=== PATIENT | female | born 1965 | race Two or more races ===

== ENCOUNTER 2016-05-23 11:12 | Emergency (ER) | payer OTHER ==
[~2016-05-23] VITALS: Ht 157.5 cm; Wt 88.5 kg
[~2016-05-23 11:12] MED LIST: ACETAMINOPHEN-1 EAC1 ORAL; ATARAX25 MG ORAL; BUSPAR10 MG PO; CIPROFLOXACIN500 M2 ORAL; CITALOPRAM HBR40 M1 ORAL; FLAGYL500 MG ORAL; IBUPROFEN600 MG ORAL; LEVAQUIN500 MG ORAL; PROTONIX40 MG ORAL; ZESTRIL20 MG ORAL; ZOFRAN4 M3 ORAL
[2016-05-23 12:04] VITALS: BP 151/86
--- NOTE | 2016-05-23 12:23 | Emergency Room Report ---
History of Present Illness General Chief Complaint: General Complaint Source: Patient (CHELI KOCH) Present Illness HPI The patient is a 51-year-old female with a stated history of hypertension and pre-diabetes presenting for left-sided facial pain with headache and subjective fevers. Pt also admits to nasal congestion. The pt states she has had a sinus infection in the past and this feels similar. Pain is an 8/10 dull ache to the L face. No radiating pain. The patient also admits to left-sided chest pain and left upper back pain for one month which is worse with movement and touch. Pt unsure of why the pain began and denies any trauma or injury. This pain is described as a 10/10 dull ache and begins in the L upper back. Pt denies cough, SOB, Numbness or tingling of the extremity, Rash. The patient denies any symptoms including shortness of breath, headache, dizziness, blurred vision, diaphoresis, weight loss, nausea, vomiting (CHELI KOCH) Allergies: Coded Allergies: AMOXICILLIN (Verified Allergy, Severe, tongue swelling & rash, 07/13/12) Patient History Past Medical History: see triage record Pertinent Family History: none Last Menstrual Period: 05/06/16 Now: No Reviewed Nursing Documentation: PMH: Agreed, PSxH: Agreed (CHELI KOCH) Nursing Documentation-PMH Past Medical History: No History, Except For Hx Cardiac Problems: No Hx Hypertension: Yes Hx Diabetes: Yes - no meds Hx Cancer: No Hx Gastrointestinal Problems: Yes Hx Neurological Problems: No (CHELI KOCH) Review of Systems All Other Systems: negative except mentioned in HPI (CHELI KOCH) Physical Exam Vital Signs Date Time Temp Pulse Resp B/P Pulse Ox O2 Delivery O2 Flow Rate FiO2 05/23/16 11:32 98.8 76 16 151/86 98 Room Air Sp02 EP Interpretation: reviewed, normal General Appearance: no apparent distress, alert, GCS 15, non-toxic Head: normocephalic, atraumatic Eyes: bilateral eye PERRL, bilateral eye normal inspection ENT: hearing grossly normal, normal pharynx, no angioedema, normal voice, TMs + canals normal, uvula midline, moist mucus membranes, nasal congestion, other - TTP over L maxillary sinus Neck: full range of motion, supple/symm/no masses Respiratory: chest non-tender, lungs clear, normal breath sounds, no accessory muscle use, no wheezing, speaking full sentences Cardiovascular #1: regular rate, rhythm, no edema Gastrointestinal: normal bowel sounds, non tender, soft, non-distended, no guarding, no rebound Rectal: deferred Genitourinary: normal inspection, no CVA tenderness Musculoskeletal: back normal, gait/station normal, normal range of motion, tender - TTP over the L latissimus dorsi Neurologic: alert, oriented x3, responsive, motor strength/tone normal, sensory intact, speech normal Psychiatric: judgement/insight normal, memory normal, mood/affect normal, no suicidal/homicidal ideation Skin: normal color, no rash, warm/dry, well hydrated Lymphatic: no adenopathy (CHELI KOCH P.AKye) Medical Decision Making PA Attestation Dr. Mcgraw is my supervising physician. Patient management was discussed with my supervising physician (CHELI KOCH) Diagnostic Impression: Primary Impression: Sinusitis, acute Additional Impression: Muscle spasm ER Course The patient is a 51-year-old female presenting with subjective fevers, left facial pain, left back pain, and chest pain PE: Vitals show initial HTN but all vitals WNL at time of DC. TTP over the L maxillary sinus only. + nasal congestion. RRR. Lungs CTA bilat. There is TTP over the L latissimus dorsi and L upper chest. Otherwise exam unremarkable. CXR unremarkable. EKG unremarkable. CBC and CMP unremarkable. No leukocytosis. UA unremarkable. Pt given IV fluids, tylenol, and flexeril and is feeling better. The pt is DC'ed and will be Tx'ed with motrin, flexeril, augmentin, and sudafed. Pt to FU with PMD. ER precautions given Laboratory Tests Test 05/23/16 11:45 05/23/16 12:30 Urine Color Pale yellow Urine Appearance Clear Urine pH 7 (4.5-8.0) Urine Specific [place] 1.010 (1.005-1.035) Urine Protein Negative (NEGATIVE) Urine Glucose (UA) Negative (NEGATIVE) Urine Ketones Negative (NEGATIVE) Urine Occult Blood 1+ (NEGATIVE) H Urine Nitrite Negative (NEGATIVE) Urine Bilirubin Negative (NEGATIVE) Urine Urobilinogen Normal MG/DL (0.0-1.0) Urine Leukocyte Esterase 1+ (NEGATIVE) H Urine RBC 2-4 /HPF (0 - 2) H Urine WBC 2-4 /HPF (0 - 2) Urine Squamous Epithelial Cells Few /LPF (NONE/OCC) Urine Bacteria Few /HPF (NONE) White Blood Count 10.0 K/UL (4.8-10.8) Red Blood Count 5.21 M/UL (4.20-5.40) Hemoglobin 15.5 G/DL (12.0-16.0) Hematocrit 47.0 % (37.0-47.0) Mean Corpuscular Volume 90 FL (80-99) Mean Corpuscular Hemoglobin 29.7 PG (27.0-31.0) Mean Corpuscular Hemoglobin Concent 33.0 G/DL (32.0-36.0) Red Cell Distribution Width 13.9 % (11.6-14.8) Platelet Count 299 K/UL (150-450) Mean Platelet Volume 7.4 FL (6.5-10.1) Neutrophils (%) (Auto) 56.1 % (45.0-75.0) Lymphocytes (%) (Auto) 30.5 % (20.0-45.0) Monocytes (%) (Auto) 7.2 % (1.0-10.0) Eosinophils (%) (Auto) 5.0 % (0.0-3.0) H Basophils (%) (Auto) 1.3 % (0.0-2.0) Sodium Level 141 mEQ/L (135-145) Potassium Level 4.7 mEQ/L (3.4-4.9) Chloride Level 102 mEQ/L (98-107) Carbon Dioxide Level 26 mEQ/L (20-30) Anion Gap 13 (5-15) Blood Urea Nitrogen 9 mg/dL (7-23) Creatinine 0.7 mg/dL (0.5-0.9) Estimate Glomerular Filtration Rate > 60 mL/min (>60) Glucose Level 109 mg/dL (74-106) H Calcium Level 10.0 mg/dL (8.6-10.2) Total Bilirubin 0.2 mg/dL (0.0-1.2) Aspartate Amino Transferase (AST) 18 U/L (5-40) Alanine Aminotransferase (ALT) 22 U/L (3-33) Alkaline Phosphatase 61 U/L (35-104) Total Protein 7.3 g/dL (6.6-8.7) Albumin 4.4 g/dL (3.5-5.2) Globulin 2.9 g/dL Albumin/Globulin Ratio 1.5 (1.0-2.7) Lipase 39 U/L (< 60) Lab Results Impression CBC, CMP unremarkable. UA shows now signs of infection (CHELI KOCH P.A.) ER Course Scribe documentation reviewed by me and is accurate. (Keon Mcgraw M.D.) EKG Diagnostic Results EP Interpretation: NSR. No acute changes Rate: normal - 67 Rhythm: NSR ST Segments: no acute changes ASA given to the pt in ED: No PA Scribe Text EKG was reviewed and read with my supervising physician. No acute ST segment changes are seen. Normal rate and rhythm. No acute changes. (CHELI KOCH P.A.) Chest X-Ray Diagnostic Results EP Interpretation: Yes Findings: no consolidation, no effusion, no pneumothorax Number of Views: 1 PA Scribe Text I am acting as scribe for my supervising physician. My supervising physician's interpretation of the chest xrays are there is no consolidation, no effusion, no acute cardiopulmonary disease, no pneumothorax (CHELI KOCH P.A.) Last Vital Signs Date Time Temp Pulse Resp B/P Pulse Ox O2 Delivery O2 Flow Rate FiO2 05/23/16 12:04 98.8 76 16 151/86 98 Room Air Status: improved (CHELI KOCH P.A.) Disposition: HOME, SELF-CARE Condition: Improved Scripts Cyclobenzaprine Hcl* (FLEXERIL*) 10 Mg Tablet 10 MG ORAL THREE TIMES A DAY, #15 TAB Prov: TERZIAN,CHELI P.A. 05/23/16 Ibuprofen* (MOTRIN*) 600 Mg Tablet 600 MG ORAL Q8H Y for For Pain, #30 TAB 0 Refills Prov: TERZIAN,CHELI P.A. 05/23/16 Levofloxacin* (LEVAQUIN*) 750 Mg Tablet 750 MG ORAL DAILY, #5 TAB Prov: TERZIAN,CHELI P.A. 05/23/16 Pseudoephedrine Hcl* (SUDAFED*) 60 Mg Tablet 60 MG PO Q6H, #20 TAB Prov: CHELI KOCH 05/23/16 Referrals: Jimenez NICHOLE,REFERRING (PCP) CHELI KOCH May 23, 2016 12:23 Keon Mcgraw M.D. May 25, 2016 01:28
[2016-05-23] MEDS ORDERED: Cyclobenzaprine 10mg Tab ORAL ONE (12:30)
[2016-05-23 12:40] LABS: APPEARANCE,URINE CLEAR; KETONES,URINE NEGATIVE (NEGATIVE); LEUKOCYTE ESTERASE ,URINE 1+ (NEGATIVE); NITRITE,URINE NEGATIVE (NEGATIVE); PH,URINE 7 (4.5-8.0); PROTEIN,URINE NEGATIVE (NEGATIVE); UROBILINOGEN,URINE NORMAL MG/DL (0.0-1.0)
[2016-05-23 12:41] LABS: BASOPHILS % (AUTO) 1.3 % (0.0-2.0); LYMPHOCYTES % (AUTO) 30.5 % (20.0-45.0); MEAN CORPUSCULAR HEMOGLOBIN 29.7 PG (27.0-31.0); MEAN CORPUSCULAR VOLUME 90 FL (80-99); MEAN PLATELET VOLUME 7.4 FL (6.5-10.1); MONOCYTES % (AUTO) 7.2 % (1.0-10.0); NEUTROPHILS % (AUTO) 56.1 % (45.0-75.0); PLATELET COUNT 299 K/UL (150-450); RED BLOOD COUNT 5.21 M/UL (4.20-5.40); RED CELL DISTRIBUTION WIDTH 13.9 % (11.6-14.8)
[2016-05-23 12:56] LABS: ALANINE AMINOTRANSFERASE 22 U/L (3-33); ALBUMIN/GLOBULIN RATIO 1.5 (1.0-2.7); ANION GAP 13 (5-15); ASPARTATE AMINO TRANSFERASE 18 U/L (5-40); CARBON DIOXIDE 26 mEQ/L (20-30); CHLORIDE 102 mEQ/L (98-107); CREATININE 0.7 mg/dL (0.5-0.9); GLOMERULAR FILTRATION RATE > 60 mL/min (>60); HEMOLYSIS 0; LIPASE 39 U/L (< 60); POTASSIUM 4.7 mEQ/L (3.4-4.9); SODIUM 141 mEQ/L (135-145); TOTAL PROTEIN 7.3 g/dL (6.6-8.7)
[2016-05-23 13:16] LABS: BACTERIA,URINE FEW /HPF; SQUAMOUS EPITHELIAL CELL,UR FEW /LPF (NONE/OCC)
[2016-05-23] MEDS ORDERED: PSEUDOEPHEDRINE60 MG PO (13:40)
[2016-05-23] MEDS ORDERED: LEVAQUIN750 MG ORAL (13:40)
[2016-05-23] MEDS ORDERED: IBUPROFEN600 MG ORAL (13:40)
[2016-05-23] MEDS ORDERED: CYCLOBENZAPRINE10 MG ORAL (13:40)
[2016-05-23 13:53] VITALS: BP 125/82
[2016-05-23 14:01] VITALS: BP 125/82
--- NOTE | 2016-05-23 14:21 | Diagnostic Imaging Report ---
Indication: COUGH Technique: One view of the chest Comparison: 08/13/2015 Findings: Lungs and pleural spaces are clear. Heart size is normal. No significant change Impression: No acute process
--- NOTE | 2016-05-26 16:13 | Cardiology Report ---
APPROVED REPORT EKG Measurement Heart [id number] HI [id number] [id number] Normal sinus rhythm Incomplete right bundle branch block Abnormal ECG
== END 2016-05-23 14:02 | disposition home or self-care (01) ==
LOC: EMR 12:15
DX: J01.90 Acute sinusitis, unspecified (principal); M62.838 Other muscle spasm; I10 Essential (primary) hypertension
CPT/HCPCS: 36415; 71010; 80053; 81003; 83690; 85025; 93005; 96374; 96375; 99284; J2405

== ENCOUNTER 2016-07-10 22:21 | Emergency (ER) | payer OTHER ==
[~2016-07-10] VITALS: Ht 157.5 cm; Wt 88.5 kg
[~2016-07-10 22:21] MED LIST changes: +CYCLOBENZAPRINE10 MG ORAL; +LEVAQUIN750 MG ORAL; +PSEUDOEPHEDRINE60 MG PO
--- NOTE | 2016-07-10 22:47 | Emergency Room Report ---
History of Present Illness General Chief Complaint: Chest Pain Source: Patient Present Illness [facility] This is a 51-year-old female with a history of gastritis anxiety. She presents with chief complaint of chest pain. Described the pain as a burning throbbing pain lasting for a few minutes. No exertional component. No diaphoresis. No shows of breath. His been ongoing for several months. She's been here before for the same thing. Workup revealed that she had gastritis on endoscopy. Negative for a tolerate. Negative for cancer. She also has history of anxiety. Has not anything for this. No other complaint. Allergies: Coded Allergies: AMOXICILLIN (Verified Allergy, Severe, tongue swelling & rash, 07/13/12) Patient History Past Medical History: see triage record, old chart reviewed Past Surgical History: other Pertinent Family History: none Social History: Denies: smoking Now: No Immunizations: other Reviewed Nursing Documentation: PMH: Agreed, PSxH: Agreed Nursing Documentation-PMH Hx Cardiac Problems: No Hx Hypertension: Yes Hx Diabetes: Yes - no meds Hx Cancer: No Hx Gastrointestinal Problems: Yes Hx Neurological Problems: No Review of Systems Eye: Denies: blurred vision, eye pain ENT: Denies: ear pain, nose congestion, throat swelling Respiratory: Denies: cough, shortness of breath Cardiovascular: Reports: chest pain, Denies: palpitations Gastrointestinal: Denies: abdominal pain, diarrhea, nausea, vomiting Musculoskeletal: Denies: back pain, joint pain Skin: Denies: rash Neurological: Denies: headache, numbness Endocrine: Denies: increased thirst, increased urine Hematologic/Lymphatic: Denies: easy bruising All Other Systems: negative except mentioned in HPI Physical Exam Vital Signs Date Time Temp Pulse Resp B/P Pulse Ox O2 Delivery O2 Flow Rate FiO2 07/10/16 22:24 97.9 97 17 148/91 97 Room Air vitals unremarkable Sp02 EP Interpretation: reviewed, normal General Appearance: well appearing, no apparent distress, alert Head: normocephalic, atraumatic Eyes: bilateral eye EOMI, bilateral eye PERRL ENT: hearing grossly normal, normal pharynx Neck: full range of motion, supple, no meningismus Respiratory: chest non-tender, lungs clear, normal breath sounds Cardiovascular #1: regular rate, rhythm, no murmur Gastrointestinal: normal bowel sounds, non tender, no mass, no organomegaly, no bruit, non-distended Musculoskeletal: back normal, gait/station normal, normal range of motion Psychiatric: mood/affect normal Skin: warm/dry Medical Decision Making Diagnostic Impression: Primary Impression: Chest pain Qualified Codes: R07.9 - Chest pain, unspecified Additional Impression: Anxiety ER Course She presents with atypical chest pain. No evidence of ACS, PE, dissection to name a few. Most likely anxiety related versus gastritis. Lab Results Impression labs normal EKG Diagnostic Results Rate: normal Rhythm: NSR ST Segments: no acute changes Rhythm Strip Diag. Results EP Interpretation: yes Rate: 75 Rhythm: NSR, no PVC's, no ectopy Chest X-Ray Diagnostic Results EP Interpretation: Yes Findings: no consolidation, no effusion, no pneumothorax, no acute cardiopulmonary disease Number of Views: 1 Last Vital Signs Date Time Temp Pulse Resp B/P Pulse Ox O2 Delivery O2 Flow Rate FiO2 07/10/16 22:24 97.9 97 17 148/91 97 Room Air Status: unchanged Disposition: HOME, SELF-CARE Condition: Stable Patient Instructions: Nonspecific Chest Pain Additional Instructions: Followup with your DrKye in 2-3 days. Return if symptom worsen. AVERY LACEY M.D. Jul 10, 2016 22:47
[2016-07-10 23:14] LABS: BASOPHILS % (AUTO) 1.4 % (0.0-2.0); EOSINOPHILS % (AUTO) 1.4 % (0.0-3.0); LYMPHOCYTES % (AUTO) 30.3 % (20.0-45.0); MEAN CORPUSCULAR HEMOGLOBIN 28.9 PG (27.0-31.0); MEAN CORPUSCULAR HGB CONC 31.6 G/DL (32.0-36.0); MEAN CORPUSCULAR VOLUME 92 FL (80-99); MEAN PLATELET VOLUME 7.5 FL (6.5-10.1); NEUTROPHILS % (AUTO) 60.9 % (45.0-75.0); PLATELET COUNT 243 K/UL (150-450); RED BLOOD COUNT 4.89 M/UL (4.20-5.40); RED CELL DISTRIBUTION WIDTH 13.4 % (11.6-14.8); WHITE BLOOD COUNT 10.7 K/UL (4.8-10.8)
[2016-07-10 23:26] LABS: ALANINE AMINOTRANSFERASE 22 U/L (3-33); ALBUMIN/GLOBULIN RATIO 1.4 (1.0-2.7); ANION GAP 15 (5-15); ASPARTATE AMINO TRANSFERASE 20 U/L (5-40); CALCIUM 9.6 mg/dL (8.6-10.2); CARBON DIOXIDE 25 mEQ/L (20-30); CHLORIDE 99 mEQ/L (98-107); GLOMERULAR FILTRATION RATE 58.7 mL/min (>60); HEMOLYSIS 5; POTASSIUM 4.2 mEQ/L (3.4-4.9); SODIUM 139 mEQ/L (135-145); TOTAL PROTEIN 7.4 g/dL (6.6-8.7); TROPONIN I < 0.30 ng/mL (<=0.30)
[2016-07-10 23:36] LABS: CKMB 3.7 ng/mL (< 3.8)
[2016-07-11] VITALS: BP 100/56
[2016-07-11 01:05] VITALS: BP 97/44
--- NOTE | 2016-07-11 10:30 | Diagnostic Imaging Report ---
Indication: Chest Pain Comparison: 05/23/16 A single view chest radiograph was obtained. Findings: Cardiomediastinal appearance is within normal limits for age. Pulmonary vascularity is appropriate. The diaphragmatic contour is smooth and costophrenic angles are sharp. No pleural effusions are identified. The bones are unremarkable. Impression: No acute findings
--- NOTE | 2016-07-15 18:24 | Cardiology Report ---
APPROVED REPORT EKG Measurement Heart [id number] Normal sinus rhythm T wave abnormality, consider lateral ischemia Abnormal ECG
== END 2016-07-11 01:11 | disposition home or self-care (01) ==
LOC: EMR 22:42
DX: R07.89 Other chest pain (principal); F41.9 Anxiety disorder, unspecified; E11.9 Type 2 diabetes mellitus without complications; I10 Essential (primary) hypertension
CPT/HCPCS: 36415; 71010; 80053; 82550; 82553; 84484; 85025; 93005; 99284

== ENCOUNTER 2018-01-07 20:31 | Inpatient (IN) | payer OTHER ==
[~2018-01-07] VITALS: Ht 157.5 cm; Wt 84.8 kg
[~2018-01-07 20:31] MED LIST changes: +BUSPIRONE HCL5 M1 ORAL
[2018-01-07] MEDS ORDERED: Sodium Chloride 500ML 500 ML IV ONE (20:48)
[2018-01-07 20:50] VITALS: BP 139/49
--- NOTE | 2018-01-07 21:15 | Emergency Room Report ---
History of Present Illness General Chief Complaint: Vomiting Source: Patient Present Illness HPI Patient is a 52-year-old male female who presented after increased generalized abdominal pain. Patient had gradual onset of symptoms. Patient had prior history of irritable bowel disease and been taking Linzess. Patient not been vomiting.Patient was noted to have evidence of increased abdominal distention. She reports having increased bowel movements. She had not been having any fever Allergies: Coded Allergies: AMOXICILLIN (Verified Allergy, Severe, tongue swelling & rash, 07/13/12) Patient History Past Medical History: see triage record Reviewed Nursing Documentation: PMH: Agreed; PSxH: Agreed Nursing Documentation-PMH Hx Cardiac Problems: No Hx Hypertension: Yes Hx Diabetes: Yes - no meds Hx Cancer: No Hx Gastrointestinal Problems: Yes - DIVERTICULITIS Hx Neurological Problems: No Review of Systems All Other Systems: negative except mentioned in HPI Physical Exam Vital Signs Date Time Temp Pulse Resp B/P (MAP) Pulse Ox O2 Delivery O2 Flow Rate FiO2 01/07/18 20:35 99.1 89 20 139/49 95 Room Air 99.1 General Appearance: normal inspection, alert, GCS 15, Chronically Ill ENT: hearing grossly normal, normal pharynx Neck: normal inspection Respiratory: normal inspection, chest non-tender, lungs clear Cardiovascular #1: normal inspection Gastrointestinal: distended, tenderness - left lower abdomen Musculoskeletal: normal inspection, back normal Neurologic: normal inspection, alert, oriented x3, responsive, senior technical project manager III-XII nml as tested Psychiatric: normal inspection Skin: normal inspection, normal color Medical Decision Making Diagnostic Impression: Primary Impression: Abdominal pain Additional Impression: Diverticulitis ER Course Patient presented for abdominal pain. Differential diagnoses included ischemic bowel, appendicitis, perforated viscus, abdominal aortic aneurysm, inferior myocardial infarction, viral gastroenteritis. Because of complexity of patient' s case laboratory testing and imaging studies were ordered. Laboratory testing was notable for elevated white blood count as well as some anemia.CT abdomen pelvis showed evidence of a left renal stone as well as evidence of diverticulitis. The patient was given IV Flagyl.Dr. Hayden Gould was contacted for inpatient management due to covering physician. Labs Test 01/07/18 20:47 White Blood Count 20.7 K/UL (4.8-10.8) Red Blood Count 4.92 M/UL (4.20-5.40) Hemoglobin 15.7 G/DL (12.0-16.0) Hematocrit 44.4 % (37.0-47.0) Mean Corpuscular Volume 90 FL (80-99) Mean Corpuscular Hemoglobin 31.9 PG (27.0-31.0) Mean Corpuscular Hemoglobin Concent 35.3 G/DL (32.0-36.0) Red Cell Distribution Width 11.6 % (11.6-14.8) Platelet Count 266 K/UL (150-450) Mean Platelet Volume 7.7 FL (6.5-10.1) Neutrophils (%) (Auto) % (45.0-75.0) Lymphocytes (%) (Auto) % (20.0-45.0) Monocytes (%) (Auto) % (1.0-10.0) Eosinophils (%) (Auto) % (0.0-3.0) Basophils (%) (Auto) % (0.0-2.0) Differential Total Cells Counted 100 Neutrophils % (Manual) 70 % (45-75) Lymphocytes % (Manual) 20 % (20-45) Monocytes % (Manual) 8 % (1-10) Eosinophils % (Manual) 2 % (0-3) Basophils % (Manual) 0 % (0-2) Band Neutrophils 0 % (0-8) Platelet Estimate Adequate Platelet Morphology Normal Red Blood Cell Morphology Normal Prothrombin Time 10.5 SEC (9.30-11.50) Prothromb Time International Ratio 1.0 (0.9-1.1) Activated Partial Thromboplast Time 26 SEC (23-33) Sodium Level 140 MMOL/L (136-145) Potassium Level 4.0 MMOL/L (3.5-5.1) Chloride Level 106 MMOL/L (98-107) Carbon Dioxide Level 25 MMOL/L (21-32) Anion Gap 9 mmol/L (5-15) Blood Urea Nitrogen 16 mg/dL (7-18) Creatinine 1.5 MG/DL (0.55-1.30) Estimat Glomerular Filtration Rate 36.6 mL/min (>60) Glucose Level 170 MG/DL (74-106) Calcium Level 9.5 MG/DL (8.5-10.1) Total Bilirubin 0.3 MG/DL (0.2-1.0) Aspartate Amino Transf (AST/SGOT) 19 U/L (15-37) Alanine Aminotransferase (ALT/SGPT) 24 U/L (12-78) Alkaline Phosphatase 72 U/L (46-116) Total Protein 7.6 G/DL (6.4-8.2) Albumin 3.5 G/DL (3.4-5.0) Globulin 4.1 g/dL Albumin/Globulin Ratio 0.9 (1.0-2.7) Lipase 181 U/L (73-393) EKG Diagnostic Results Rate: normal Rhythm: NSR ST Segments: no acute changes Last Vital Signs Date Time Temp Pulse Resp B/P (MAP) Pulse Ox O2 Delivery O2 Flow Rate FiO2 01/07/18 20:35 99.1 89 20 139/49 95 Room Air 99.1 Status: unchanged Disposition: ADMITTED INPATIENT Condition: Serious Referrals: Jimenez NICHOLE,REFERRING (PCP) Jono Lechuga MD Jan 07, 2018 21:15
[2018-01-07 21:23] LABS: HEMATOCRIT 44.4 % (37.0-47.0); HEMOGLOBIN 15.7 G/DL (12.0-16.0); MEAN CORPUSCULAR VOLUME 90 FL (80-99); PLATELET COUNT 266 K/UL (150-450); RED BLOOD COUNT 4.92 M/UL (4.20-5.40); RED CELL DISTRIBUTION WIDTH 11.6 % (11.6-14.8); WHITE BLOOD COUNT 20.7 K/UL (4.8-10.8)
[2018-01-07] MEDS ORDERED: Isovue-300 100ml vial INJ PRN (21:30)
[2018-01-07] MEDS ORDERED: Simethicone 80mg tab ORAL ONE (21:30)
[2018-01-07 21:38] LABS: ALANINE AMINOTRANSFERASE 24 U/L (12-78); ALBUMIN 3.5 G/DL (3.4-5.0); ALBUMIN/GLOBULIN RATIO 0.9 (1.0-2.7); ALKALINE PHOSPHATASE 72 U/L (46-116); ANION GAP 9 mmol/L (5-15); ASPARTATE AMINO TRANSFERASE 19 U/L (15-37); BILIRUBIN,TOTAL 0.3 MG/DL (0.2-1.0); BLOOD UREA NITROGEN 16 mg/dL (7-18); CALCIUM 9.5 MG/DL (8.5-10.1); CARBON DIOXIDE 25 MMOL/L (21-32); CHLORIDE 106 MMOL/L (98-107); CREATININE 1.5 MG/DL (0.55-1.30); SODIUM 140 MMOL/L (136-145)
[2018-01-07] MEDS ORDERED: Morphine Sulfate 4mg/ml Inj (IV USE ONLY) IVP ONE (22:00)
[2018-01-07] MEDS ORDERED: Mylanta II UD 30ml ORAL PRN (22:30)
[2018-01-07] MEDS ORDERED: Miralax 17gm pkt ORAL PRN (22:30)
[2018-01-07] MEDS ORDERED: Nitroglycerin Subl 0.4mg tab SL PRN (22:30)
[2018-01-07 22:43] LABS: APPEARANCE,URINE SLIGHTLY CLOUDY; BILIRUBIN, URINE NEGATIVE (NEGATIVE); COLOR,URINE PALE YELLOW; GLUCOSE, URINE (UA) NEGATIVE (NEGATIVE); KETONES,URINE NEGATIVE (NEGATIVE); LEUKOCYTE ESTERASE ,URINE 1+ (NEGATIVE); NITRITE,URINE NEGATIVE (NEGATIVE); PH,URINE 6 (4.5-8.0); PROTEIN,URINE 4+ (NEGATIVE); UROBILINOGEN,URINE NORMAL MG/DL (0.0-1.0)
[2018-01-07] MEDS ORDERED: PANTOPRAZOLE SO40 MG ORAL (22:54)
[2018-01-07] MEDS ORDERED: LISINOPRIL20 MG ORAL (22:54)
[2018-01-07] MEDS ORDERED: METFORMIN HCL500 M1 ORAL (22:54)
[2018-01-07] MEDS ORDERED: CELEXA20 MG ORAL (22:54)
[2018-01-07] MEDS ORDERED: BUSPIRONE HCL15 MG ORAL (22:54)
[2018-01-07] MEDS ORDERED: HYDROXYZINE HCL10 M1 PO (22:54)
[2018-01-07 23:00] VITALS: BP 137/78
[2018-01-07] MEDS: D5 1/2NS 1,000 ML IV SCH (23:16)
[2018-01-07 23:30] VITALS: BP 136/86
[2018-01-08 04:00] VITALS: BP 130/69
[2018-01-08] MEDS: Morphine Sulfate 2mg/ml Inj IVP PRN ×3 (04:40→21:17)
[2018-01-08 06:12] LABS: EOSINOPHILS % (AUTO) 0.4 % (0.0-3.0); HEMATOCRIT 43.2 % (37.0-47.0); HEMOGLOBIN 14.8 G/DL (12.0-16.0); LYMPHOCYTES % (AUTO) 18.5 % (20.0-45.0); MEAN CORPUSCULAR VOLUME 91 FL (80-99); MONOCYTES % (AUTO) 8.2 % (1.0-10.0); NEUTROPHILS % (AUTO) 71.9 % (45.0-75.0); PLATELET COUNT 255 K/UL (150-450); RED BLOOD COUNT 4.74 M/UL (4.20-5.40); RED CELL DISTRIBUTION WIDTH 11.5 % (11.6-14.8); WHITE BLOOD COUNT 15.3 K/UL (4.8-10.8)
[2018-01-08 06:49] LABS: ALANINE AMINOTRANSFERASE 27 U/L (12-78); ALBUMIN 3.2 G/DL (3.4-5.0); ALBUMIN/GLOBULIN RATIO 0.8 (1.0-2.7); ALKALINE PHOSPHATASE 63 U/L (46-116); AMYLASE 24 U/L (25-115); ANION GAP 7 mmol/L (5-15); ASPARTATE AMINO TRANSFERASE 22 U/L (15-37); BILIRUBIN,TOTAL 0.5 MG/DL (0.2-1.0); BLOOD UREA NITROGEN 16 mg/dL (7-18); CALCIUM 9.1 MG/DL (8.5-10.1); CARBON DIOXIDE 28 MMOL/L (21-32); CHLORIDE 106 MMOL/L (98-107); CREATININE 1.6 MG/DL (0.55-1.30); POTASSIUM 4.1 MMOL/L (3.5-5.1); SODIUM 141 MMOL/L (136-145)
[2018-01-08 08:00] VITALS: BP 106/64
--- NOTE | 2018-01-08 08:30 | Diagnostic Imaging Report ---
Clinical Indication: Abdominal pain Technique: No oral contrast utilized, per emergency room physician request IV administration nonionic contrast. Venous phase spiral acquisition obtained through the abdomen and pelvis. Multiplanar reconstructions were generated. Total dose length product 984.1 mGycm. CTDIvol(s) 18.6 mGy. Dose reduction achieved using automated exposure control Comparison: 07/06/2015 Findings: There is colonic diverticulosis. The region of the proximal sigmoid colon, there is infiltration of the pericolonic fat, as well as probably a small amount of fluid tracking along the fascial planes. No extraluminal gas or discrete fluid collection demonstrated. Indication is similar to previously reported abnormalities, amount of pericolonic inflammation greater than before The appendix is normal. No small bowel distention. No free or loculated intraperitoneal gas or fluid. There is a tiny fat-containing umbilical hernia again demonstrated. The distal esophagus, stomach, duodenum are unremarkable. The liver is mildly hypoattenuating. The gallbladder, bile ducts, pancreas, spleen, adrenals are unremarkable. The uterus again demonstrates multiple areas of low attenuation. Previously demonstrated cervical low-attenuation areas are less well-seen on the current exam. No pelvic mass or adenopathy otherwise. In the left renal pelvis, there is a 13 x 8 mm diameter calculus, previously within the left lower pole calyx. There is very mild hydronephrosis. There is mild infiltration of the perinephric fat bilaterally as well as of the renal sinus fat on the left. No hydronephrosis. No ureteral calculi. Previously demonstrated low-attenuation renal lesions are not evident currently, presumably due to a different phase of enhancement The included lung bases are clear. The bones demonstrate minimal degenerative proliferative changes. Impression: Findings compatible with acute sigmoid diverticulitis Interim migration of 13.8 mm calculus in left renal pelvis. Apparent mild hydronephrosis. Mild infiltration of the perinephric and peripelvic fat-uncertain as to whether this represents obstruction or inflammation, as there is also some infiltration of the perinephric fat on the right Mild infiltration of the perinephric fat bilaterally in the renal sinus fat on the left. Nonspecific, does raise possibility of acute pyelonephritis. Correlate with clinical and laboratory findings Mild hepatic low attenuation could indicate early steatosis Other findings as noted, including mild degenerative spondylosis changes, fibroid uterus, tiny fat-containing umbilical hernia. Note that previously demonstrated renal and cervical low-attenuation lesions are less well demonstrated currently, probably related to the phase of contrast enhancement This agrees with the preliminary interpretation provided overnight by [facility] teleradiology service. The CT scanner at [facility] is accredited by the [employer] and the scans are performed using protocols designed to limit radiation exposure to as low as reasonably achievable to attain images of sufficient resolution adequate for diagnostic evaluation.
[2018-01-08] MEDS: Lisinopril 20mg tab ORAL SCH (09:00)
[2018-01-08] MEDS: Pantoprazole Inj IVP SCH (09:12)
[2018-01-08] MEDS: Heparin 5000 units/ml inj SUBQ SCH ×2 (09:13→20:32)
[2018-01-08] MEDS: D5 1/2NS 1,000 ML IV SCH (11:26)
[2018-01-08 12:00] VITALS: BP 99/49
--- NOTE | 2018-01-08 12:08 | Consultation ---
History of Present Illness General Date patient seen: Jan 08, 2018 Chief Complaint: Vomiting Reason for Consultation: Diverticulitis Present Illness HPI Ms Logan is a 52 yo female who presented to the ED on 01/07/18 with abdominal pain. The pain was generalized and progressive over the last week. She has had some vomiting and diarrhea. She reports no SOB, CP, Fevers or chills. In the ED she had leukocytosis to [address] scan showed sigmoid diverticulitis. Today she reports that the abdominal pain is better but still present even with pain meds. ID consulted for acute diverticulitis PMHx/PSHx Hypertension DM IBS SocHx Active Smoker No E/D FamHx DM - Mom. Allergies: Coded Allergies: AMOXICILLIN (Verified Allergy, Severe, tongue swelling & rash, 07/13/12) Medication History Scheduled Buspirone Hcl* (Buspirone Hcl*), Unknown Dose ORAL TWICE A DAY, (Reported) Buspirone Hcl* (Buspirone Hcl*), 15 MG ORAL TWICE A DAY, (Reported) Citalopram Hydrobromide* (Citalopram Hbr*), 40 MG ORAL DAILY, (Reported) Citalopram Hydrobromide* (Celexa*), 20 MG ORAL DAILY, (Reported) Lisinopril (Lisinopril*), 25 MG ORAL DAILY, (Reported) Lisinopril* (Zestril*), 20 MG ORAL DAILY, (Reported) Metformin Hcl* (Metformin Hcl*), 500 MG ORAL DAILY, (Reported) Pantoprazole* (Pantoprazole*), 40 MG ORAL EVERY 12 HOURS, (Reported) Miscellaneous Medications Hydroxyzine Hcl (Hydroxyzine Hcl), 10 MG PO, (Reported) Patient History Healthcare decision maker Resuscitation status Advanced Directive on File Review of Systems All Other Systems: negative except mentioned in HPI Physical Exam Last 24 Hour Vital Signs Date Time Temp Pulse Resp B/P (MAP) Pulse Ox O2 Delivery O2 Flow Rate FiO2 01/08/18 09:00 106/64 01/08/18 08:15 Room Air 01/08/18 08:00 98.3 69 20 106/64 (78) 99 98.3 01/08/18 08:00 98.3 69 20 106/64 (78) 99 98.3 01/08/18 04:00 97.8 71 18 130/69 (89) 96 97.8 01/07/18 23:30 98.2 73 18 136/86 (103) 95 98.2 01/07/18 23:30 Room Air 01/07/18 23:00 77 12 137/78 99 Room Air 01/07/18 23:00 77 12 137/78 99 Room Air 01/07/18 22:13 99.1 01/07/18 20:50 99.1 20 139/49 95 Room Air 99.1 01/07/18 20:35 99.1 89 20 139/49 95 Room Air 99.1 Intake and Output 01/07/18 01/08/18 19:00 07:00 Intake Total 1500 ml Balance 1500 ml Intake IV Total 1500 ml # Voids 5 Laboratory Tests Test 01/07/18 20:47 01/07/18 22:00 01/08/18 05:10 White Blood Count 20.7 K/UL (4.8-10.8) H 15.3 K/UL (4.8-10.8) H Red Blood Count 4.92 M/UL (4.20-5.40) 4.74 M/UL (4.20-5.40) Hemoglobin 15.7 G/DL (12.0-16.0) 14.8 G/DL (12.0-16.0) Hematocrit 44.4 % (37.0-47.0) 43.2 % (37.0-47.0) Mean Corpuscular Volume 90 FL (80-99) 91 FL (80-99) Mean Corpuscular Hemoglobin 31.9 PG (27.0-31.0) H 31.2 PG (27.0-31.0) H Mean Corpuscular Hemoglobin Concent 35.3 G/DL (32.0-36.0) 34.2 G/DL (32.0-36.0) Red Cell Distribution Width 11.6 % (11.6-14.8) 11.5 % (11.6-14.8) L Platelet Count 266 K/UL (150-450) 255 K/UL (150-450) Mean Platelet Volume 7.7 FL (6.5-10.1) 7.7 FL (6.5-10.1) Neutrophils (%) (Auto) % (45.0-75.0) 71.9 % (45.0-75.0) Lymphocytes (%) (Auto) % (20.0-45.0) 18.5 % (20.0-45.0) L Monocytes (%) (Auto) % (1.0-10.0) 8.2 % (1.0-10.0) Eosinophils (%) (Auto) % (0.0-3.0) 0.4 % (0.0-3.0) Basophils (%) (Auto) % (0.0-2.0) 1.0 % (0.0-2.0) Differential Total Cells Counted 100 Neutrophils % (Manual) 70 % (45-75) Lymphocytes % (Manual) 20 % (20-45) Monocytes % (Manual) 8 % (1-10) Eosinophils % (Manual) 2 % (0-3) Basophils % (Manual) 0 % (0-2) Band Neutrophils 0 % (0-8) Platelet Estimate Adequate Platelet Morphology Normal Red Blood Cell Morphology Normal Prothrombin Time 10.5 SEC (9.30-11.50) Prothromb Time International Ratio 1.0 (0.9-1.1) Activated Partial Thromboplast Time 26 SEC (23-33) 26 SEC (23-33) Sodium Level 140 MMOL/L (136-145) 141 MMOL/L (136-145) Potassium Level 4.0 MMOL/L (3.5-5.1) 4.1 MMOL/L (3.5-5.1) Chloride Level 106 MMOL/L (98-107) 106 MMOL/L (98-107) Carbon Dioxide Level 25 MMOL/L (21-32) 28 MMOL/L (21-32) Anion Gap 9 mmol/L (5-15) 7 mmol/L (5-15) Blood Urea Nitrogen 16 mg/dL (7-18) 16 mg/dL (7-18) Creatinine 1.5 MG/DL (0.55-1.30) H 1.6 MG/DL (0.55-1.30) H Estimat Glomerular Filtration Rate 36.6 mL/min (>60) 34.0 mL/min (>60) Glucose Level 170 MG/DL (74-106) H 130 MG/DL (74-106) H Calcium Level 9.5 MG/DL (8.5-10.1) 9.1 MG/DL (8.5-10.1) Total Bilirubin 0.3 MG/DL (0.2-1.0) 0.5 MG/DL (0.2-1.0) Aspartate Amino Transf (AST/SGOT) 19 U/L (15-37) 22 U/L (15-37) Alanine Aminotransferase (ALT/SGPT) 24 U/L (12-78) 27 U/L (12-78) Alkaline Phosphatase 72 U/L (46-116) 63 U/L (46-116) Total Protein 7.6 G/DL (6.4-8.2) 7.2 G/DL (6.4-8.2) Albumin 3.5 G/DL (3.4-5.0) 3.2 G/DL (3.4-5.0) L Globulin 4.1 g/dL 4.0 g/dL Albumin/Globulin Ratio 0.9 (1.0-2.7) L 0.8 (1.0-2.7) L Lipase 181 U/L (73-393) Urine Color Pale yellow Urine Appearance Slightly cloudy Urine pH 6 (4.5-8.0) Urine Specific [place] 1.010 (1.005-1.035) Urine Protein 4+ (NEGATIVE) H Urine Glucose (UA) Negative (NEGATIVE) Urine Ketones Negative (NEGATIVE) Urine Blood 3+ (NEGATIVE) H Urine Nitrite Negative (NEGATIVE) Urine Bilirubin Negative (NEGATIVE) Urine Urobilinogen Normal MG/DL (0.0-1.0) Urine Leukocyte Esterase 1+ (NEGATIVE) H Urine RBC 20-30 /HPF (0 - 2) H Urine WBC 10-15 /HPF (0 - 2) H Urine Squamous Epithelial Cells Many /LPF (NONE/OCC) H Urine Bacteria Many /HPF (NONE) H Amylase Level 24 U/L (25-115) L Height (Feet): 5 Height (Inches): 2.00 Weight (Pounds): 187 Medications Current Medications Medications (Trade) Dose Ordered Sig/Dexter Route PRN Reason Start Time Stop Time Status Last Admin Dose Admin Acetaminophen (Tylenol) 650 mg Q4H PRN ORAL fever 01/07/18 22:30 02/06/18 22:29 Al Hydroxide/Mg Hydroxide (Mylanta II) 30 ml Q6H PRN ORAL dyspepsia 01/07/18 22:30 02/06/18 22:29 Dextrose (Dextrose 50%) STAT PRN IV Hypoglycemia 01/07/18 22:30 02/06/18 22:29 Dextrose/Sodium Chloride 1,000 ml @ 75 mls/hr [id number] IV 01/07/18 22:19 02/06/18 22:18 01/08/18 11:26 Diphenhydramine HCl (Benadryl) 25 mg Q6H PRN ORAL Itching/Pruritis 01/07/18 22:30 02/06/18 22:29 Heparin Sodium (Porcine) (Heparin 5000 units/ml) 5,000 units EVERY 12 HOURS SUBQ 01/08/18 09:00 02/07/18 08:59 01/08/18 09:13 Iopamidol (Isovue-300 100ml) 100 ml NOW PRN INJ Radiology Procedure 01/07/18 21:30 Lisinopril (Prinivil) 20 mg DAILY ORAL 01/08/18 09:00 02/07/18 08:59 Morphine Sulfate (Morphine Sulfate) 2 mg EVERY 4 HOURS PRN IVP severe Pain (Pain Scale 7-10) 01/07/18 22:30 01/14/18 22:29 01/08/18 04:40 Nitroglycerin (Ntg) 0.4 mg Q5M X 3 DOSES PRN SL Prn Chest Pain 01/07/18 22:30 02/06/18 22:29 Ondansetron HCl (Zofran) 4 mg Q6H PRN IVP Nausea & Vomiting 01/07/18 22:30 02/06/18 22:29 01/08/18 04:40 Pantoprazole (Protonix) 40 mg DAILY IVP 01/08/18 09:00 02/07/18 08:59 01/08/18 09:12 Polyethylene Glycol (Miralax) 17 gm HSPRN PRN ORAL Constipation 01/07/18 22:30 02/06/18 22:29 Temazepam (Restoril) 15 mg HSPRN PRN ORAL Insomnia 01/07/18 22:30 01/14/18 22:29 Objective Narrative Gen: NAD, well appearing, alert HEENT: NCAT, MMM, EOMI, PERRL, No Oral lesion, no scleral icterus NECK: full range of motion, supple, no meningismus, No LAD, No JVD LUNGS: CTAB, No W/C, No Accessory muscle use CARDS: RRR, S1, S2, No M/R/G ABD: Soft, TTP R and L LQ, ND, No R/G, + BS, No HSM, No Masses : Deferred Ext: C/C/E, Pulses 2+ B/L (DP, Rad) NEURO: A/O x 4, Strength and Sensation Grossly intact PSYCH: mood/affect normal SKIN: warm/dry, No rashes, Assessment/Plan Assessment/Plan 52 yo female who presented to the ED on 01/07/18 with abdominal pain. Acute Diverticulitis 01/07/18 CT Abd/Pel - Acute sigmoid diverticulitis Leukocytosis - Improving Allergy to Amoxicillin Tongue swelling Hypertension DM IBS Plan Start Levofloxacin #1/14 Continue flagyl #2/14 Monitor CBC and Temps Supportive care Thank you for this consult. We will continue to follow the patient during this hospitalization. Keon Ferrer MD Jan 08, 2018 12:08
--- NOTE | 2018-01-08 13:53 | Consultation ---
History of Present Illness General Date patient seen: Jan 08, 2018 Chief Complaint: Vomiting Reason for Consultation: Diverticulitis Present Illness HPI 52-year-old male female who presented to ER with increased generalized abdominal pain. Patient had gradual onset of symptoms. She had leukocytosis and CT abdomen showed acute diverticulitis. Allergies: Coded Allergies: AMOXICILLIN (Verified Allergy, Severe, tongue swelling & rash, 07/13/12) Medication History Scheduled Buspirone Hcl* (Buspirone Hcl*), Unknown Dose ORAL TWICE A DAY, (Reported) Buspirone Hcl* (Buspirone Hcl*), 15 MG ORAL TWICE A DAY, (Reported) Citalopram Hydrobromide* (Citalopram Hbr*), 40 MG ORAL DAILY, (Reported) Citalopram Hydrobromide* (Celexa*), 20 MG ORAL DAILY, (Reported) Lisinopril (Lisinopril*), 25 MG ORAL DAILY, (Reported) Lisinopril* (Zestril*), 20 MG ORAL DAILY, (Reported) Metformin Hcl* (Metformin Hcl*), 500 MG ORAL DAILY, (Reported) Pantoprazole* (Pantoprazole*), 40 MG ORAL EVERY 12 HOURS, (Reported) Miscellaneous Medications Hydroxyzine Hcl (Hydroxyzine Hcl), 10 MG PO, (Reported) Patient History Healthcare decision maker Resuscitation status Advanced Directive on File Past Medical/Surgical History Past Medical/Surgical History: (1) Depression Review of Systems Constitutional: Reports: no symptoms Physical Exam General Appearance: WD/WN, no apparent distress Lines, tubes and drains: peripheral HEENT: normocephalic, atraumatic Neck: non-tender, normal alignment Respiratory/Chest: chest wall non-tender, lungs clear Breasts: no masses Cardiovascular/Chest: normal rate Abdomen: normal bowel sounds Genitourinary/Rectal: normal genital exam Last 24 Hour Vital Signs Date Time Temp Pulse Resp B/P (MAP) Pulse Ox O2 Delivery O2 Flow Rate FiO2 01/08/18 12:00 98.1 65 20 99/49 (66) 97 98.1 01/08/18 09:00 106/64 01/08/18 08:15 Room Air 01/08/18 08:00 98.3 69 20 106/64 (78) 99 98.3 01/08/18 08:00 98.3 69 20 106/64 (78) 99 98.3 01/08/18 04:00 97.8 71 18 130/69 (89) 96 97.8 01/07/18 23:30 98.2 73 18 136/86 (103) 95 98.2 01/07/18 23:30 Room Air 01/07/18 23:00 77 12 137/78 99 Room Air 01/07/18 23:00 77 12 137/78 99 Room Air 01/07/18 22:13 99.1 01/07/18 20:50 99.1 20 139/49 95 Room Air 99.1 01/07/18 20:35 99.1 89 20 139/49 95 Room Air 99.1 Intake and Output 01/07/18 01/08/18 19:00 07:00 Intake Total 1575 ml Balance 1575 ml Intake IV Total 1575 ml # Voids 5 Laboratory Tests Test 01/07/18 20:47 01/07/18 22:00 01/08/18 05:10 White Blood Count 20.7 K/UL (4.8-10.8) H 15.3 K/UL (4.8-10.8) H Red Blood Count 4.92 M/UL (4.20-5.40) 4.74 M/UL (4.20-5.40) Hemoglobin 15.7 G/DL (12.0-16.0) 14.8 G/DL (12.0-16.0) Hematocrit 44.4 % (37.0-47.0) 43.2 % (37.0-47.0) Mean Corpuscular Volume 90 FL (80-99) 91 FL (80-99) Mean Corpuscular Hemoglobin 31.9 PG (27.0-31.0) H 31.2 PG (27.0-31.0) H Mean Corpuscular Hemoglobin Concent 35.3 G/DL (32.0-36.0) 34.2 G/DL (32.0-36.0) Red Cell Distribution Width 11.6 % (11.6-14.8) 11.5 % (11.6-14.8) L Platelet Count 266 K/UL (150-450) 255 K/UL (150-450) Mean Platelet Volume 7.7 FL (6.5-10.1) 7.7 FL (6.5-10.1) Neutrophils (%) (Auto) % (45.0-75.0) 71.9 % (45.0-75.0) Lymphocytes (%) (Auto) % (20.0-45.0) 18.5 % (20.0-45.0) L Monocytes (%) (Auto) % (1.0-10.0) 8.2 % (1.0-10.0) Eosinophils (%) (Auto) % (0.0-3.0) 0.4 % (0.0-3.0) Basophils (%) (Auto) % (0.0-2.0) 1.0 % (0.0-2.0) Differential Total Cells Counted 100 Neutrophils % (Manual) 70 % (45-75) Lymphocytes % (Manual) 20 % (20-45) Monocytes % (Manual) 8 % (1-10) Eosinophils % (Manual) 2 % (0-3) Basophils % (Manual) 0 % (0-2) Band Neutrophils 0 % (0-8) Platelet Estimate Adequate Platelet Morphology Normal Red Blood Cell Morphology Normal Prothrombin Time 10.5 SEC (9.30-11.50) Prothromb Time International Ratio 1.0 (0.9-1.1) Activated Partial Thromboplast Time 26 SEC (23-33) 26 SEC (23-33) Sodium Level 140 MMOL/L (136-145) 141 MMOL/L (136-145) Potassium Level 4.0 MMOL/L (3.5-5.1) 4.1 MMOL/L (3.5-5.1) Chloride Level 106 MMOL/L (98-107) 106 MMOL/L (98-107) Carbon Dioxide Level 25 MMOL/L (21-32) 28 MMOL/L (21-32) Anion Gap 9 mmol/L (5-15) 7 mmol/L (5-15) Blood Urea Nitrogen 16 mg/dL (7-18) 16 mg/dL (7-18) Creatinine 1.5 MG/DL (0.55-1.30) H 1.6 MG/DL (0.55-1.30) H Estimat Glomerular Filtration Rate 36.6 mL/min (>60) 34.0 mL/min (>60) Glucose Level 170 MG/DL (74-106) H 130 MG/DL (74-106) H Calcium Level 9.5 MG/DL (8.5-10.1) 9.1 MG/DL (8.5-10.1) Total Bilirubin 0.3 MG/DL (0.2-1.0) 0.5 MG/DL (0.2-1.0) Aspartate Amino Transf (AST/SGOT) 19 U/L (15-37) 22 U/L (15-37) Alanine Aminotransferase (ALT/SGPT) 24 U/L (12-78) 27 U/L (12-78) Alkaline Phosphatase 72 U/L (46-116) 63 U/L (46-116) Total Protein 7.6 G/DL (6.4-8.2) 7.2 G/DL (6.4-8.2) Albumin 3.5 G/DL (3.4-5.0) 3.2 G/DL (3.4-5.0) L Globulin 4.1 g/dL 4.0 g/dL Albumin/Globulin Ratio 0.9 (1.0-2.7) L 0.8 (1.0-2.7) L Lipase 181 U/L (73-393) Urine Color Pale yellow Urine Appearance Slightly cloudy Urine pH 6 (4.5-8.0) Urine Specific [place] 1.010 (1.005-1.035) Urine Protein 4+ (NEGATIVE) H Urine Glucose (UA) Negative (NEGATIVE) Urine Ketones Negative (NEGATIVE) Urine Blood 3+ (NEGATIVE) H Urine Nitrite Negative (NEGATIVE) Urine Bilirubin Negative (NEGATIVE) Urine Urobilinogen Normal MG/DL (0.0-1.0) Urine Leukocyte Esterase 1+ (NEGATIVE) H Urine RBC 20-30 /HPF (0 - 2) H Urine WBC 10-15 /HPF (0 - 2) H Urine Squamous Epithelial Cells Many /LPF (NONE/OCC) H Urine Bacteria Many /HPF (NONE) H Amylase Level 24 U/L (25-115) L Height (Feet): 5 Height (Inches): 2.00 Weight (Pounds): 187 Medications Current Medications Medications (Trade) Dose Ordered Sig/Dexter Route PRN Reason Start Time Stop Time Status Last Admin Dose Admin Acetaminophen (Tylenol) 650 mg Q4H PRN ORAL fever 01/07/18 22:30 02/06/18 22:29 Al Hydroxide/Mg Hydroxide (Mylanta II) 30 ml Q6H PRN ORAL dyspepsia 01/07/18 22:30 02/06/18 22:29 Ciprofloxacin 200 ml @ 200 mls/hr Q12HR IV 01/08/18 13:00 01/15/18 12:59 Dextrose (Dextrose 50%) STAT PRN IV Hypoglycemia 01/07/18 22:30 02/06/18 22:29 Dextrose/Sodium Chloride 1,000 ml @ 75 mls/hr [id number] IV 01/07/18 22:19 02/06/18 22:18 01/08/18 11:26 Diphenhydramine HCl (Benadryl) 25 mg Q6H PRN ORAL Itching/Pruritis 01/07/18 22:30 02/06/18 22:29 Heparin Sodium (Porcine) (Heparin 5000 units/ml) 5,000 units EVERY 12 HOURS SUBQ 01/08/18 09:00 02/07/18 08:59 01/08/18 09:13 Iopamidol (Isovue-300 100ml) 100 ml NOW PRN INJ Radiology Procedure 01/07/18 21:30 Lisinopril (Prinivil) 20 mg DAILY ORAL 01/08/18 09:00 02/07/18 08:59 Metronidazole 100 ml @ 100 mls/hr Q8HR IVPB 01/08/18 14:00 01/15/18 13:59 Morphine Sulfate (Morphine Sulfate) 2 mg EVERY 4 HOURS PRN IVP severe Pain (Pain Scale 7-10) 01/07/18 22:30 01/14/18 22:29 01/08/18 04:40 Nitroglycerin (Ntg) 0.4 mg Q5M X 3 DOSES PRN SL Prn Chest Pain 01/07/18 22:30 02/06/18 22:29 Ondansetron HCl (Zofran) 4 mg Q6H PRN IVP Nausea & Vomiting 01/07/18 22:30 02/06/18 22:29 01/08/18 04:40 Pantoprazole (Protonix) 40 mg DAILY IVP 01/08/18 09:00 02/07/18 08:59 01/08/18 09:12 Polyethylene Glycol (Miralax) 17 gm HSPRN PRN ORAL Constipation 01/07/18 22:30 02/06/18 22:29 Temazepam (Restoril) 15 mg HSPRN PRN ORAL Insomnia 01/07/18 22:30 01/14/18 22:29 Assessment/Plan Problem List: (1) Diverticulitis ICD Codes: K57.92 - Diverticulitis of intestine, part unspecified, without perforation or abscess without bleeding SNOMED: [id number] (2) Abdominal pain Assessment/Plan npo iv antibiotics check wbc symptomatic treatment check electrolytes symptomatic treatment dvt prophylaxis Jeffry Adan MD Jan 08, 2018 13:53
--- NOTE | 2018-01-08 14:50 | GI Initial Consult Note ---
History of Present Illness General Date patient seen: Jan 08, 2018 Time patient seen: 14:45 Reason for Hospitalization: Vomiting Referring physician: MARY MCCLURE Reason for Consultation: Diverticulitis Present Illness HPI Patient is a 52-year-old male female who presented after increased generalized abdominal pain. Patient had gradual onset of symptoms. Patient had prior history of irritable bowel disease and been taking Linzess. Patient not been vomiting.Patient was noted to have evidence of increased abdominal distention. She reports having increased bowel movements. She had not been having any fever GI consulted for abdominal pain. Pt seen, awake A&Ox4 NAD with no active s/sx of N/V/D. Pt has abdominal pain in all quadrants, tender to palpation. Abdomen is soft. Patient denies any diarrhea. States she has constipation. CT AP showed sigmoid diverticulitis. Patient has history of endoscopy here at [place] in 2015, noted with duodenal polyp. Unknown history of colonoscopy. Labs show leukocytosis. No anemia. Normal LFTs. Home Meds Reported Medications Hydroxyzine Hcl (HYDROXYZINE HCL) 10 Mg Tablet, 10 MG PO, TAB 01/07/18 Pantoprazole* (PANTOPRAZOLE*) 40 Mg Tablet.dr, 40 MG ORAL EVERY 12 HOURS, TAB 01/07/18 Citalopram Hydrobromide* (CELEXA*) 20 Mg Tablet, 20 MG ORAL DAILY, TAB 01/07/18 Buspirone Hcl* (BUSPIRONE HCL*) 15 Mg Tablet, 15 MG ORAL TWICE A DAY, TAB 0 Refills 01/07/18 Lisinopril (LISINOPRIL*) 20 Mg Tablet, 25 MG ORAL DAILY, TAB 01/07/18 Metformin Hcl* (METFORMIN HCL*) 500 Mg Tablet, 500 MG ORAL DAILY, TAB 01/07/18 Buspirone Hcl* (BUSPIRONE HCL*) 5 Mg Tablet, ORAL TWICE A DAY, #60 TAB 0 Refills 09/18/17 Citalopram Hydrobromide* (CITALOPRAM HBR*) 40 Mg Tablet, 40 MG ORAL DAILY, TAB 07/06/15 Lisinopril* (ZESTRIL*) 20 Mg Tablet, 20 MG ORAL DAILY, #10 TAB 07/13/12 Med list reviewed/reconciled: Yes Allergies: Coded Allergies: AMOXICILLIN (Verified Allergy, Severe, tongue swelling & rash, 07/13/12) Patient History PMH Narrative Past Medical History: see triage record Reviewed Nursing Documentation: PMH: Agreed; PSxH: Agreed Nursing Documentation-PMH Hx Cardiac Problems: No Hx Hypertension: Yes Hx Diabetes: Yes - no meds Hx Cancer: No Hx Gastrointestinal Problems: Yes - DIVERTICULITIS Hx Neurological Problems: No Past Surgical History: none Pertinent Family History: none Social History: Reports: smoking Review of Systems All Other Systems: negative except mentioned in HPI Physical Exam Vital Signs Date Time Temp Pulse Resp B/P (MAP) Pulse Ox O2 Delivery O2 Flow Rate FiO2 01/07/18 20:35 99.1 89 20 139/49 95 Room Air 99.1 Sp02 EP Interpretation: reviewed, normal Labs Laboratory Tests Test 01/07/18 20:47 01/07/18 22:00 01/08/18 05:10 White Blood Count 20.7 K/UL (4.8-10.8) H 15.3 K/UL (4.8-10.8) H Red Blood Count 4.92 M/UL (4.20-5.40) 4.74 M/UL (4.20-5.40) Hemoglobin 15.7 G/DL (12.0-16.0) 14.8 G/DL (12.0-16.0) Hematocrit 44.4 % (37.0-47.0) 43.2 % (37.0-47.0) Mean Corpuscular Volume 90 FL (80-99) 91 FL (80-99) Mean Corpuscular Hemoglobin 31.9 PG (27.0-31.0) H 31.2 PG (27.0-31.0) H Mean Corpuscular Hemoglobin Concent 35.3 G/DL (32.0-36.0) 34.2 G/DL (32.0-36.0) Red Cell Distribution Width 11.6 % (11.6-14.8) 11.5 % (11.6-14.8) L Platelet Count 266 K/UL (150-450) 255 K/UL (150-450) Mean Platelet Volume 7.7 FL (6.5-10.1) 7.7 FL (6.5-10.1) Neutrophils (%) (Auto) % (45.0-75.0) 71.9 % (45.0-75.0) Lymphocytes (%) (Auto) % (20.0-45.0) 18.5 % (20.0-45.0) L Monocytes (%) (Auto) % (1.0-10.0) 8.2 % (1.0-10.0) Eosinophils (%) (Auto) % (0.0-3.0) 0.4 % (0.0-3.0) Basophils (%) (Auto) % (0.0-2.0) 1.0 % (0.0-2.0) Differential Total Cells Counted 100 Neutrophils % (Manual) 70 % (45-75) Lymphocytes % (Manual) 20 % (20-45) Monocytes % (Manual) 8 % (1-10) Eosinophils % (Manual) 2 % (0-3) Basophils % (Manual) 0 % (0-2) Band Neutrophils 0 % (0-8) Platelet Estimate Adequate Platelet Morphology Normal Red Blood Cell Morphology Normal Prothrombin Time 10.5 SEC (9.30-11.50) Prothromb Time International Ratio 1.0 (0.9-1.1) Activated Partial Thromboplast Time 26 SEC (23-33) 26 SEC (23-33) Sodium Level 140 MMOL/L (136-145) 141 MMOL/L (136-145) Potassium Level 4.0 MMOL/L (3.5-5.1) 4.1 MMOL/L (3.5-5.1) Chloride Level 106 MMOL/L (98-107) 106 MMOL/L (98-107) Carbon Dioxide Level 25 MMOL/L (21-32) 28 MMOL/L (21-32) Anion Gap 9 mmol/L (5-15) 7 mmol/L (5-15) Blood Urea Nitrogen 16 mg/dL (7-18) 16 mg/dL (7-18) Creatinine 1.5 MG/DL (0.55-1.30) H 1.6 MG/DL (0.55-1.30) H Estimat Glomerular Filtration Rate 36.6 mL/min (>60) 34.0 mL/min (>60) Glucose Level 170 MG/DL (74-106) H 130 MG/DL (74-106) H Calcium Level 9.5 MG/DL (8.5-10.1) 9.1 MG/DL (8.5-10.1) Total Bilirubin 0.3 MG/DL (0.2-1.0) 0.5 MG/DL (0.2-1.0) Aspartate Amino Transf (AST/SGOT) 19 U/L (15-37) 22 U/L (15-37) Alanine Aminotransferase (ALT/SGPT) 24 U/L (12-78) 27 U/L (12-78) Alkaline Phosphatase 72 U/L (46-116) 63 U/L (46-116) Total Protein 7.6 G/DL (6.4-8.2) 7.2 G/DL (6.4-8.2) Albumin 3.5 G/DL (3.4-5.0) 3.2 G/DL (3.4-5.0) L Globulin 4.1 g/dL 4.0 g/dL Albumin/Globulin Ratio 0.9 (1.0-2.7) L 0.8 (1.0-2.7) L Lipase 181 U/L (73-393) Urine Color Pale yellow Urine Appearance Slightly cloudy Urine pH 6 (4.5-8.0) Urine Specific [place] 1.010 (1.005-1.035) Urine Protein 4+ (NEGATIVE) H Urine Glucose (UA) Negative (NEGATIVE) Urine Ketones Negative (NEGATIVE) Urine Blood 3+ (NEGATIVE) H Urine Nitrite Negative (NEGATIVE) Urine Bilirubin Negative (NEGATIVE) Urine Urobilinogen Normal MG/DL (0.0-1.0) Urine Leukocyte Esterase 1+ (NEGATIVE) H Urine RBC 20-30 /HPF (0 - 2) H Urine WBC 10-15 /HPF (0 - 2) H Urine Squamous Epithelial Cells Many /LPF (NONE/OCC) H Urine Bacteria Many /HPF (NONE) H Amylase Level 24 U/L (25-115) L General Appearance: well appearing, no apparent distress, alert, obese Head: normocephalic EENT: PERRL/EOMI, normal ENT inspection Neck: supple Respiratory: normal breath sounds, no respiratory distress Cardiovascular: normal rate Gastrointestinal: normal inspection, non tender, soft, normal bowel sounds, non -distended Rectal: deferred Genitourinary: no CVA tenderness Musculoskeletal: normal inspection, back normal Neurologic: normal inspection, alert, oriented x3, responsive Psychiatric: normal inspection, judgement/insight normal, memory normal Skin: normal inspection, normal color, no rash, warm/dry, palpation normal, well hydrated Lymphatic: normal inspection, no adenopathy Current Medications Current Medications Medications (Trade) Dose Ordered Sig/Dexter Route PRN Reason Start Time Stop Time Status Last Admin Dose Admin Acetaminophen (Tylenol) 650 mg Q4H PRN ORAL fever 01/07/18 22:30 02/06/18 22:29 Al Hydroxide/Mg Hydroxide (Mylanta II) 30 ml Q6H PRN ORAL dyspepsia 01/07/18 22:30 02/06/18 22:29 Ciprofloxacin 200 ml @ 200 mls/hr Q12HR IV 01/08/18 13:00 01/15/18 12:59 01/08/18 13:41 Dextrose (Dextrose 50%) STAT PRN IV Hypoglycemia 01/07/18 22:30 02/06/18 22:29 Dextrose/Sodium Chloride 1,000 ml @ 75 mls/hr [id number] IV 01/07/18 22:19 02/06/18 22:18 01/08/18 11:26 Diphenhydramine HCl (Benadryl) 25 mg Q6H PRN ORAL Itching/Pruritis 01/07/18 22:30 02/06/18 22:29 Heparin Sodium (Porcine) (Heparin 5000 units/ml) 5,000 units EVERY 12 HOURS SUBQ 01/08/18 09:00 02/07/18 08:59 01/08/18 09:13 Iopamidol (Isovue-300 100ml) 100 ml NOW PRN INJ Radiology Procedure 01/07/18 21:30 Lisinopril (Prinivil) 20 mg DAILY ORAL 01/08/18 09:00 02/07/18 08:59 Metronidazole 100 ml @ 100 mls/hr Q8HR IVPB 01/08/18 14:00 01/15/18 13:59 Morphine Sulfate (Morphine Sulfate) 2 mg EVERY 4 HOURS PRN IVP severe Pain (Pain Scale 7-10) 01/07/18 22:30 01/14/18 22:29 01/08/18 13:53 Nitroglycerin (Ntg) 0.4 mg Q5M X 3 DOSES PRN SL Prn Chest Pain 01/07/18 22:30 02/06/18 22:29 Ondansetron HCl (Zofran) 4 mg Q6H PRN IVP Nausea & Vomiting 01/07/18 22:30 02/06/18 22:29 01/08/18 13:48 Pantoprazole (Protonix) 40 mg DAILY IVP 01/08/18 09:00 02/07/18 08:59 01/08/18 09:12 Polyethylene Glycol (Miralax) 17 gm HSPRN PRN ORAL Constipation 01/07/18 22:30 02/06/18 22:29 Temazepam (Restoril) 15 mg HSPRN PRN ORAL Insomnia 01/07/18 22:30 01/14/18 22:29 GI: Plan Problems: (1) Diverticulitis (2) Abdominal pain Plan s/p EGD in 2015, with duodenal polyp bowel rest >> CLD, adv as tolerated IV hydration >> LR or NS Cipro + Flagyl IV Abx >> transition to PO x10 days after dc pain mgmt zofran prn ppi fu labs pt will require colonoscopy x 2 months after dc date. Discussed with Dr. Barnard. Thank you for this patient referral, we will follow. The patient was seen and examined at bedside and all new and available data was reviewed in the patients chart. I agree with the above findings, impression and plan. (Patient seen earlier today. Signature stamp does not reflect patient encounter time.). - MD Nikole Hidalgo,[facility] QUALITY ASSURANCE NURSE Jan 08, 2018 14:50
[2018-01-08] MEDS ORDERED: D5 1/2NS 1000ml IV ONE (15:32)
[2018-01-08 16:00] VITALS: BP 120/79
--- NOTE | 2018-01-08 19:30 | History and Physical Report ---
DATE OF ADMISSION: 01/07/2018 CHIEF COMPLAINT: The patient is a 52-year-old female, who presents with chief complaint of generalized abdominal pain. HISTORY OF PRESENT ILLNESS: Began one day prior to admission. The patient states she began to experience generalized abdominal pain. There is no localization of the pain. The patient has a history of diverticulitis in 2016. The patient presented to [place] emergency room. A CT scan of the abdomen revealed acute sigmoid diverticulitis. The patient is admitted with abdominal pain and diverticulitis. PAST MEDICAL HISTORY: Significant for 1. Diverticulitis in 2016 as above. 2. Hypertension. 3. Anxiety disorder. 4. Depression. 5. Gastroesophageal reflux disease. PAST SURGICAL HISTORY: The patient denies. CURRENT MEDICATIONS: 1. Buspirone 15 mg p.o. twice daily. 2. Citalopram 40 mg p.o. daily. 3. Hydralazine 10 mg p.o. 3 times daily. 4. Lisinopril 20 mg p.o. daily. 5. Metformin 500 mg p.o. daily. 6. Protonix 40 mg p.o. daily. ALLERGIES: Amoxicillin. SOCIAL HISTORY: The patient is . The patient admits to tobacco use one-half pack per day. The patient denies alcohol use. REVIEW OF SYSTEMS: CONSTITUTIONAL: The patient denies weight loss or weight gain. The patient denies fevers or chills. HEENT: The patient denies ear or throat pain. The patient denies headache. CARDIOVASCULAR: The patient denies palpitations or chest pain. CHEST: The patient denies wheeze or shortness of breath. ABDOMEN: The patient complains of diffuse abdominal pain. The patient denies nausea, vomiting, diarrhea, or constipation. GENITOURINARY: The patient denies dysuria or increased frequency of urination. PHYSICAL EXAMINATION: GENERAL: The patient is well-developed and well-nourished female, in no apparent distress. VITAL SIGNS: Temperature 97.8 degrees, respirations 18, pulse 71, blood pressure 130/89. HEENT: Eyes, pupils equal and responsive to light and accommodation. Extraocular movements are intact. NECK: Supple without lymphadenopathy. CHEST: Lungs are clear to auscultation bilaterally without wheezes or rales. CARDIOVASCULAR: Regular rhythm and rate. S1 and S2 are normal without murmurs, rubs, or gallops. ABDOMEN: Tender to palpation in all four quadrants. No rebound noted. No hepatosplenomegaly noted. Voluntary guarding noted in all four quadrants. NEUROLOGIC: Cranial nerves II through XII grossly intact without focal deficits. Motor strength is 5/5 bilaterally. Deep tendon reflexes are 2+ plantar. LABORATORY AND DIAGNOSTIC DATA: WBC 20.7, hemoglobin 15.7, hematocrit 44.4 and platelets 100,000. Sodium 140, potassium 4.0, chloride 106, CO2 25, BUN 16, creatinine 1.[address] scan of the abdomen was consistent with sigmoid diverticulitis without perforation. ASSESSMENT: This is a 52-year-old female 1. Sigmoid diverticulitis. 2. Diffuse abdominal pain. 3. Diabetes. 4. Hypertension. 5. Depression. 6. Anxiety. TREATMENT: 1. Diverticulosis. The patient has been placed empirically on metronidazole and ciprofloxacin. A Gastroenterology consultation has been obtained with Dr. Barnard. We will follow recommendations of Gastroenterology. 2. Diabetes. Continue metformin as above. The patient is currently NPO. 3. Hypertension. Continue lisinopril as above. 4. Depression/anxiety. Continue BuSpar and citalopram as above. Fei Crocker M.D. DR: ADITYA JOB#: [id number] CC:
[2018-01-08 20:00] VITALS: BP 99/69
[2018-01-09] VITALS: BP 97/63
[2018-01-09] MEDS: D5 1/2NS 1,000 ML IV SCH ×2 (03:15→14:19)
[2018-01-09 04:00] VITALS: BP 106/62
[2018-01-09 06:20] LABS: BASOPHILS % (AUTO) 1.1 % (0.0-2.0); EOSINOPHILS % (AUTO) 1.8 % (0.0-3.0); HEMATOCRIT 41.6 % (37.0-47.0); HEMOGLOBIN 13.9 G/DL (12.0-16.0); MEAN CORPUSCULAR VOLUME 92 FL (80-99); MONOCYTES % (AUTO) 7.2 % (1.0-10.0); PLATELET COUNT 260 K/UL (150-450); RED BLOOD COUNT 4.52 M/UL (4.20-5.40); RED CELL DISTRIBUTION WIDTH 11.8 % (11.6-14.8); WHITE BLOOD COUNT 9.4 K/UL (4.8-10.8)
[2018-01-09 06:25] LABS: ANION GAP 6 mmol/L (5-15); BLOOD UREA NITROGEN 15 mg/dL (7-18); CALCIUM 9.2 MG/DL (8.5-10.1); CARBON DIOXIDE 29 MMOL/L (21-32); CHLORIDE 107 MMOL/L (98-107); CREATININE 1.3 MG/DL (0.55-1.30); SODIUM 142 MMOL/L (136-145)
[2018-01-09 08:00] VITALS: BP 105/65
[2018-01-09] MEDS: Pantoprazole Inj IVP SCH (08:59)
[2018-01-09] MEDS: Lisinopril 20mg tab ORAL SCH (08:59)
[2018-01-09] MEDS: Heparin 5000 units/ml inj SUBQ SCH (09:13)
--- NOTE | 2018-01-09 09:24 | Infectious Diseases Prog Note ---
Assessment/Plan Assessment/Plan Gen: NAD, well appearing, alert HEENT: NCAT, MMM, EOMI, PERRL, No Oral lesion, no scleral icterus NECK: full range of motion, supple, no meningismus, No LAD, No JVD LUNGS: CTAB, No W/C, No Accessory muscle use CARDS: RRR, S1, S2, No M/R/G ABD: Soft, TTP R and L LQ, ND, No R/G, + BS, No HSM, No Masses : Deferred Ext: C/C/E, Pulses 2+ B/L (DP, Rad) NEURO: A/O x 4, Strength and Sensation Grossly intact PSYCH: mood/affect normal SKIN: warm/dry, No rashes, Assessment/Plan Assessment/Plan Assessment/Plan 52 yo female who presented to the ED on 01/07/18 with abdominal pain. Acute Diverticulitis 01/07/18 CT Abd/Pel - Acute sigmoid diverticulitis Leukocytosis - Resolved Allergy to Amoxicillin Tongue swelling Hypertension DM IBS Plan Continue Ciprofloxacin #2/ Continue flagyl #3/14 Monitor CBC and Temps Supportive care We will continue to follow the patient during this hospitalization. Subjective Allergies: Coded Allergies: AMOXICILLIN (Verified Allergy, Severe, tongue swelling & rash, 07/13/12) Subjective Patient pain continues to improve Afebrile Objective Vital Signs Last 24 Hour Vital Signs Date Time Temp Pulse Resp B/P (MAP) Pulse Ox O2 Delivery O2 Flow Rate FiO2 01/09/18 08:59 105/65 01/09/18 04:00 97.5 61 20 106/62 (77) 95 97.5 01/09/18 00:00 97.9 60 18 97/63 (74) 94 97.9 01/08/18 21:00 Room Air 01/08/18 20:00 98.1 58 19 99/69 (79) 95 98.1 01/08/18 16:00 97.7 99 21 120/79 (93) 97 97.7 01/08/18 12:00 98.1 65 20 99/49 (66) 97 98.1 Height (Feet): 5 Height (Inches): 2.00 Weight (Pounds): 187 Objective Gen: NAD, well appearing, alert HEENT: NCAT, MMM, EOMI, no scleral icterus LUNGS: CTAB, No W/C, CARDS: RRR, S1, S2, No M/R/G ABD: Soft, TTP R and L LQ improved ND, + BS, Ext: C/C/E, Pulses 2+ B/L (DP, Rad) Microbiology Date/Time Source Procedure Growth Status 01/07/18 22:00 Urine,Clean Catch Urine Culture - Preliminary NO GROWTH Resulted Laboratory Tests Test 01/09/18 05:30 White Blood Count 9.4 K/UL (4.8-10.8) Red Blood Count 4.52 M/UL (4.20-5.40) Hemoglobin 13.9 G/DL (12.0-16.0) Hematocrit 41.6 % (37.0-47.0) Mean Corpuscular Volume 92 FL (80-99) Mean Corpuscular Hemoglobin 30.8 PG (27.0-31.0) Mean Corpuscular Hemoglobin Concent 33.4 G/DL (32.0-36.0) Red Cell Distribution Width 11.8 % (11.6-14.8) Platelet Count 260 K/UL (150-450) Mean Platelet Volume 7.6 FL (6.5-10.1) Neutrophils (%) (Auto) 50.0 % (45.0-75.0) Lymphocytes (%) (Auto) 40.0 % (20.0-45.0) Monocytes (%) (Auto) 7.2 % (1.0-10.0) Eosinophils (%) (Auto) 1.8 % (0.0-3.0) Basophils (%) (Auto) 1.1 % (0.0-2.0) Sodium Level 142 MMOL/L (136-145) Potassium Level 4.0 MMOL/L (3.5-5.1) Chloride Level 107 MMOL/L (98-107) Carbon Dioxide Level 29 MMOL/L (21-32) Anion Gap 6 mmol/L (5-15) Blood Urea Nitrogen 15 mg/dL (7-18) Creatinine 1.3 MG/DL (0.55-1.30) Estimat Glomerular Filtration Rate 43.2 mL/min (>60) Glucose Level 121 MG/DL (74-106) H Calcium Level 9.2 MG/DL (8.5-10.1) Current Medications Medications (Trade) Dose Ordered Sig/Dexter Route PRN Reason Start Time Stop Time Status Last Admin Dose Admin Acetaminophen (Tylenol) 650 mg Q4H PRN ORAL fever 01/07/18 22:30 02/06/18 22:29 Al Hydroxide/Mg Hydroxide (Mylanta II) 30 ml Q6H PRN ORAL dyspepsia 01/07/18 22:30 02/06/18 22:29 Ciprofloxacin 200 ml @ 200 mls/hr Q12HR IV 01/08/18 13:00 01/15/18 12:59 01/09/18 08:59 Dextrose (Dextrose 50%) STAT PRN IV Hypoglycemia 01/07/18 22:30 02/06/18 22:29 Dextrose/Sodium Chloride 1,000 ml @ 75 mls/hr [id number] IV 01/07/18 22:19 02/06/18 22:18 01/09/18 03:15 Diphenhydramine HCl (Benadryl) 25 mg Q6H PRN ORAL Itching/Pruritis 01/07/18 22:30 02/06/18 22:29 Heparin Sodium (Porcine) (Heparin 5000 units/ml) 5,000 units EVERY 12 HOURS SUBQ 01/08/18 09:00 02/07/18 08:59 01/09/18 09:13 Iopamidol (Isovue-300 100ml) 100 ml NOW PRN INJ Radiology Procedure 01/07/18 21:30 Lisinopril (Prinivil) 20 mg DAILY ORAL 01/08/18 09:00 02/07/18 08:59 Metronidazole 100 ml @ 100 mls/hr Q8HR IVPB 01/08/18 14:00 01/15/18 13:59 01/09/18 05:29 Morphine Sulfate (Morphine Sulfate) 2 mg EVERY 4 HOURS PRN IVP severe Pain (Pain Scale 7-10) 01/07/18 22:30 01/14/18 22:29 01/08/18 21:17 Nitroglycerin (Ntg) 0.4 mg Q5M X 3 DOSES PRN SL Prn Chest Pain 01/07/18 22:30 02/06/18 22:29 Ondansetron HCl (Zofran) 4 mg Q6H PRN IVP Nausea & Vomiting 01/07/18 22:30 02/06/18 22:29 01/08/18 21:17 Pantoprazole (Protonix) 40 mg DAILY IVP 01/08/18 09:00 02/07/18 08:59 01/09/18 08:59 Polyethylene Glycol (Miralax) 17 gm HSPRN PRN ORAL Constipation 01/07/18 22:30 02/06/18 22:29 Temazepam (Restoril) 15 mg HSPRN PRN ORAL Insomnia 01/07/18 22:30 01/14/18 22:29 Keon Ferrer MD Jan 09, 2018 09:24
--- NOTE | 2018-01-09 10:58 | GI Progress Note ---
Assessment/Plan Problems: (1) Leukocytosis ICD Codes: D72.829 - Elevated white blood cell count, unspecified SNOMED: 876391605, 939693074 (2) Abdominal pain ICD Codes: R10.9 - Abdominal pain SNOMED: 35954987 (3) Diverticulitis ICD Codes: K57.92 - Diverticulitis of intestine, part unspecified, without perforation or abscess without bleeding SNOMED: 792969944 (4) Acid reflux disease ICD Codes: K21.9 - Gastro-esophageal reflux disease without esophagitis SNOMED: 730486612 (5) High triglycerides ICD Codes: E78.1 - Pure hyperglyceridemia SNOMED: 754239956 (6) Anemia ICD Codes: D64.9 - Anemia, unspecified SNOMED: 374613159 (7) Epigastric pain ICD Codes: R10.13 - Epigastric pain SNOMED: 50436102 Status: stable Status Narrative Discussed with Dr. Barnard. Assessment/Plan s/p EGD in 2016, with duodenal polyp cont current plan of care bowel rest >> CLD, adv as tolerated IV hydration >> LR or NS Cipro + Flagyl IV Abx >> transition to PO x10 days after dc pain mgmt zofran prn ppi fu labs pt will require colonoscopy x 2 months after dc date. The patient was seen and examined at bedside and all new and available data was reviewed in the patients chart. I agree with the above findings, impression and plan. (Patient seen earlier today. Signature stamp does not reflect patient encounter time.). - Pete Barnard MD Subjective Gastrointestinal/Abdominal: Reports: no symptoms Subjective still has abdominal pain, slight improvement Objective Last 24 Hour Vital Signs Date Time Temp Pulse Resp B/P (MAP) Pulse Ox O2 Delivery O2 Flow Rate FiO2 01/09/18 09:00 Room Air 01/09/18 08:59 105/65 01/09/18 08:00 97.6 52 15 105/65 (78) 94 97.6 01/09/18 04:00 97.5 61 20 106/62 (77) 95 97.5 01/09/18 00:00 97.9 60 18 97/63 (74) 94 97.9 01/08/18 21:00 Room Air 01/08/18 20:00 98.1 58 19 99/69 (79) 95 98.1 01/08/18 16:00 97.7 99 21 120/79 (93) 97 97.7 01/08/18 12:00 98.1 65 20 99/49 (66) 97 98.1 Intake and Output 01/08/18 01/09/18 19:00 07:00 Intake Total 900 ml 1285 ml Balance 900 ml 1285 ml Intake Oral 360 ml IV Total 900 ml 925 ml # Voids 3 4 Laboratory Tests Test 01/09/18 05:30 White Blood Count 9.4 K/UL (4.8-10.8) Red Blood Count 4.52 M/UL (4.20-5.40) Hemoglobin 13.9 G/DL (12.0-16.0) Hematocrit 41.6 % (37.0-47.0) Mean Corpuscular Volume 92 FL (80-99) Mean Corpuscular Hemoglobin 30.8 PG (27.0-31.0) Mean Corpuscular Hemoglobin Concent 33.4 G/DL (32.0-36.0) Red Cell Distribution Width 11.8 % (11.6-14.8) Platelet Count 260 K/UL (150-450) Mean Platelet Volume 7.6 FL (6.5-10.1) Neutrophils (%) (Auto) 50.0 % (45.0-75.0) Lymphocytes (%) (Auto) 40.0 % (20.0-45.0) Monocytes (%) (Auto) 7.2 % (1.0-10.0) Eosinophils (%) (Auto) 1.8 % (0.0-3.0) Basophils (%) (Auto) 1.1 % (0.0-2.0) Sodium Level 142 MMOL/L (136-145) Potassium Level 4.0 MMOL/L (3.5-5.1) Chloride Level 107 MMOL/L (98-107) Carbon Dioxide Level 29 MMOL/L (21-32) Anion Gap 6 mmol/L (5-15) Blood Urea Nitrogen 15 mg/dL (7-18) Creatinine 1.3 MG/DL (0.55-1.30) Estimat Glomerular Filtration Rate 43.2 mL/min (>60) Glucose Level 121 MG/DL (74-106) H Calcium Level 9.2 MG/DL (8.5-10.1) Height (Feet): 5 Height (Inches): 2.00 Weight (Pounds): 187 General Appearance: WD/WN, no apparent distress, alert Cardiovascular: normal rate Respiratory/Chest: normal breath sounds, no respiratory distress Abdominal Exam: normal bowel sounds, non tender, soft Extremities: normal range of motion, non-tender Yandel Agustin NP Jan 09, 2018 10:58
[2018-01-09 12:00] VITALS: BP 114/61
[2018-01-09] MEDS ORDERED: Citalopram Hydrobromide 10mg Tab ORAL SCH ×2 (12:30→14:00)
--- NOTE | 2018-01-09 12:30 | Consultation ---
History of Present Illness General Date patient seen: Jan 08, 2018 Chief Complaint: Vomiting Referring physician: MARY MCCLURE Reason for Consultation: Diverticulitis Present Illness HPI 52 yo female with hx of depression and anxiety who presented to the ED on with abdominal pain. the pt pw anxiety low energy and depressed mood. the pt has not been taking her celexa since yesterday and is withdrawing. The pt has no si/hi. no psychotic sxs. The pt would like her aunt to be called and get winter outfits. Allergies: Coded Allergies: AMOXICILLIN (Verified Allergy, Severe, tongue swelling & rash, 07/13/12) Medication History Scheduled Buspirone Hcl* (Buspirone Hcl*), Unknown Dose ORAL TWICE A DAY, (Reported) Buspirone Hcl* (Buspirone Hcl*), 15 MG ORAL TWICE A DAY, (Reported) Citalopram Hydrobromide* (Citalopram Hbr*), 40 MG ORAL DAILY, (Reported) Citalopram Hydrobromide* (Celexa*), 20 MG ORAL DAILY, (Reported) Lisinopril (Lisinopril*), 25 MG ORAL DAILY, (Reported) Lisinopril* (Zestril*), 20 MG ORAL DAILY, (Reported) Metformin Hcl* (Metformin Hcl*), 500 MG ORAL DAILY, (Reported) Pantoprazole* (Pantoprazole*), 40 MG ORAL EVERY 12 HOURS, (Reported) Miscellaneous Medications Hydroxyzine Hcl (Hydroxyzine Hcl), 10 MG PO, (Reported) Patient History Limited by: medical condition History Provided By: Patient, Medical Record, PMD Healthcare decision maker Resuscitation status Advanced Directive on File Past Medical/Surgical History Past Medical/Surgical History: (1) Lower GI bleed (2) Hematochezia (3) Dysmenorrhea (4) Acute chest pain (5) ACS (acute coronary syndrome) (6) Gastritis (7) Polyp of duodenum (8) Anemia due to blood loss, acute (9) Muscle spasm (10) Sinusitis, acute (11) Anxiety (12) Diverticulitis (13) Depression (14) Anemia (15) Leukocytosis (16) Epigastric pain (17) Abdominal pain (18) High triglycerides (19) Acid reflux disease Review of Systems Psychiatric: Reports: prior hx, anxiety, depressed feelings, emotional problems Physical Exam General Appearance: alert Neurologic: oriented x 3, responsive, depressed affect Last 24 Hour Vital Signs Date Time Temp Pulse Resp B/P (MAP) Pulse Ox O2 Delivery O2 Flow Rate FiO2 01/09/18 12:00 97.2 52 15 114/61 (78) 94 97.2 01/09/18 09:00 Room Air 01/09/18 08:59 105/65 01/09/18 08:00 97.6 52 15 105/65 (78) 94 97.6 01/09/18 04:00 97.5 61 20 106/62 (77) 95 97.5 01/09/18 00:00 97.9 60 18 97/63 (74) 94 97.9 01/08/18 21:00 Room Air 01/08/18 20:00 98.1 58 19 99/69 (79) 95 98.1 01/08/18 16:00 97.7 99 21 120/79 (93) 97 97.7 Intake and Output 01/08/18 01/09/18 19:00 07:00 Intake Total 900 ml 1285 ml Balance 900 ml 1285 ml Intake Oral 360 ml IV Total 900 ml 925 ml # Voids 3 4 Laboratory Tests Test 01/09/18 05:30 White Blood Count 9.4 K/UL (4.8-10.8) Red Blood Count 4.52 M/UL (4.20-5.40) Hemoglobin 13.9 G/DL (12.0-16.0) Hematocrit 41.6 % (37.0-47.0) Mean Corpuscular Volume 92 FL (80-99) Mean Corpuscular Hemoglobin 30.8 PG (27.0-31.0) Mean Corpuscular Hemoglobin Concent 33.4 G/DL (32.0-36.0) Red Cell Distribution Width 11.8 % (11.6-14.8) Platelet Count 260 K/UL (150-450) Mean Platelet Volume 7.6 FL (6.5-10.1) Neutrophils (%) (Auto) 50.0 % (45.0-75.0) Lymphocytes (%) (Auto) 40.0 % (20.0-45.0) Monocytes (%) (Auto) 7.2 % (1.0-10.0) Eosinophils (%) (Auto) 1.8 % (0.0-3.0) Basophils (%) (Auto) 1.1 % (0.0-2.0) Sodium Level 142 MMOL/L (136-145) Potassium Level 4.0 MMOL/L (3.5-5.1) Chloride Level 107 MMOL/L (98-107) Carbon Dioxide Level 29 MMOL/L (21-32) Anion Gap 6 mmol/L (5-15) Blood Urea Nitrogen 15 mg/dL (7-18) Creatinine 1.3 MG/DL (0.55-1.30) Estimat Glomerular Filtration Rate 43.2 mL/min (>60) Glucose Level 121 MG/DL (74-106) H Calcium Level 9.2 MG/DL (8.5-10.1) Height (Feet): 5 Height (Inches): 2.00 Weight (Pounds): 187 Medications Current Medications Medications (Trade) Dose Ordered Sig/Dexter Route PRN Reason Start Time Stop Time Status Last Admin Dose Admin Acetaminophen (Tylenol) 650 mg Q4H PRN ORAL fever 01/07/18 22:30 02/06/18 22:29 Al Hydroxide/Mg Hydroxide (Mylanta II) 30 ml Q6H PRN ORAL dyspepsia 01/07/18 22:30 02/06/18 22:29 Ciprofloxacin 200 ml @ 200 mls/hr Q12HR IV 01/08/18 13:00 01/15/18 12:59 01/09/18 08:59 Dextrose (Dextrose 50%) STAT PRN IV Hypoglycemia 01/07/18 22:30 02/06/18 22:29 Dextrose/Sodium Chloride 1,000 ml @ 75 mls/hr [id number] IV 01/07/18 22:19 02/06/18 22:18 01/09/18 03:15 Diphenhydramine HCl (Benadryl) 25 mg Q6H PRN ORAL Itching/Pruritis 01/07/18 22:30 02/06/18 22:29 Heparin Sodium (Porcine) (Heparin 5000 units/ml) 5,000 units EVERY 12 HOURS SUBQ 01/08/18 09:00 02/07/18 08:59 01/09/18 09:13 Iopamidol (Isovue-300 100ml) 100 ml NOW PRN INJ Radiology Procedure 01/07/18 21:30 Lisinopril (Prinivil) 20 mg DAILY ORAL 01/08/18 09:00 02/07/18 08:59 Metronidazole 100 ml @ 100 mls/hr Q8HR IVPB 01/08/18 14:00 01/15/18 13:59 01/09/18 05:29 Morphine Sulfate (Morphine Sulfate) 2 mg EVERY 4 HOURS PRN IVP severe Pain (Pain Scale 7-10) 01/07/18 22:30 01/14/18 22:29 01/08/18 21:17 Nitroglycerin (Ntg) 0.4 mg Q5M X 3 DOSES PRN SL Prn Chest Pain 01/07/18 22:30 02/06/18 22:29 Ondansetron HCl (Zofran) 4 mg Q6H PRN IVP Nausea & Vomiting 01/07/18 22:30 02/06/18 22:29 01/08/18 21:17 Pantoprazole (Protonix) 40 mg DAILY IVP 01/08/18 09:00 02/07/18 08:59 01/09/18 08:59 Polyethylene Glycol (Miralax) 17 gm HSPRN PRN ORAL Constipation 01/07/18 22:30 02/06/18 22:29 Temazepam (Restoril) 15 mg HSPRN PRN ORAL Insomnia 01/07/18 22:30 01/14/18 22:29 Assessment/Plan Assessment/Plan MDD Anxiety d/o celexa 20mg qam ativan prn long term care social worker to assist with her needs Sierra Antoine MD Jan 09, 2018 12:30
--- NOTE | 2018-01-09 13:42 | Pulmonology Progress Note ---
Assessment/Plan Problems: (1) Diverticulitis (2) Abdominal pain Assessment/Plan improving continue abx dc home Subjective ROS Limited/Unobtainable: No Constitutional: Reports: no symptoms HEENT: Repors: no symptoms Respiratory: Reports: no symptoms Allergies: Coded Allergies: AMOXICILLIN (Verified Allergy, Severe, tongue swelling & rash, 07/13/12) Objective Last 24 Hour Vital Signs Date Time Temp Pulse Resp B/P (MAP) Pulse Ox O2 Delivery O2 Flow Rate FiO2 01/09/18 12:00 97.2 52 15 114/61 (78) 94 97.2 01/09/18 09:00 Room Air 01/09/18 08:59 105/65 01/09/18 08:00 97.6 52 15 105/65 (78) 94 97.6 01/09/18 04:00 97.5 61 20 106/62 (77) 95 97.5 01/09/18 00:00 97.9 60 18 97/63 (74) 94 97.9 01/08/18 21:00 Room Air 01/08/18 20:00 98.1 58 19 99/69 (79) 95 98.1 01/08/18 16:00 97.7 99 21 120/79 (93) 97 97.7 Intake and Output 01/08/18 01/09/18 19:00 07:00 Intake Total 900 ml 1285 ml Balance 900 ml 1285 ml Intake Oral 360 ml IV Total 900 ml 925 ml # Voids 3 4 General Appearance: WD/WN HEENT: normocephalic, atraumatic Respiratory/Chest: chest wall non-tender, lungs clear Breasts: no masses Cardiovascular: normal peripheral pulses, normal rate Abdomen: normal bowel sounds, soft, non tender, no scars Extremities: no cyanosis Skin: no rash Microbiology Date/Time Source Procedure Growth Status 01/07/18 22:00 Urine,Clean Catch Urine Culture - Preliminary NO GROWTH Resulted Laboratory Tests 01/09/18 05:30: White Blood Count 9.4, Red Blood Count 4.52, Hemoglobin 13.9, Hematocrit 41.6, Mean Corpuscular Volume 92, Mean Corpuscular Hemoglobin 30.8, Mean Corpuscular Hemoglobin Concent 33.4, Red Cell Distribution Width 11.8, Platelet Count 260, Mean Platelet Volume 7.6, Neutrophils (%) (Auto) 50.0, Lymphocytes (%) (Auto) 40.0, Monocytes (%) (Auto) 7.2, Eosinophils (%) (Auto) 1.8, Basophils (%) (Auto ) 1.1, Sodium Level 142, Potassium Level 4.0, Chloride Level 107, Carbon Dioxide Level 29, Anion Gap 6, Blood Urea Nitrogen 15, Creatinine 1.3, Estimat Glomerular Filtration Rate 43.2, Glucose Level 121H, Calcium Level 9.2 Current Medications Medications (Trade) Dose Ordered Sig/Dexter Route PRN Reason Start Time Stop Time Status Last Admin Dose Admin Acetaminophen (Tylenol) 650 mg Q4H PRN ORAL fever 01/07/18 22:30 02/06/18 22:29 Al Hydroxide/Mg Hydroxide (Mylanta II) 30 ml Q6H PRN ORAL dyspepsia 01/07/18 22:30 02/06/18 22:29 Buspirone HCl (Buspar) 10 mg BID ORAL 01/09/18 15:00 02/08/18 14:59 Ciprofloxacin 200 ml @ 200 mls/hr Q12HR IV 01/08/18 13:00 01/15/18 12:59 01/09/18 08:59 Citalopram Hydrobromide (celeXA) 40 mg DAILY ORAL 01/09/18 14:00 02/08/18 13:59 Dextrose (Dextrose 50%) STAT PRN IV Hypoglycemia 01/07/18 22:30 02/06/18 22:29 Dextrose/Sodium Chloride 1,000 ml @ 75 mls/hr [id number] IV 01/07/18 22:19 02/06/18 22:18 01/09/18 03:15 Diphenhydramine HCl (Benadryl) 25 mg Q6H PRN ORAL Itching/Pruritis 01/07/18 22:30 02/06/18 22:29 Heparin Sodium (Porcine) (Heparin 5000 units/ml) 5,000 units EVERY 12 HOURS SUBQ 01/08/18 09:00 02/07/18 08:59 01/09/18 09:13 Iopamidol (Isovue-300 100ml) 100 ml NOW PRN INJ Radiology Procedure 01/07/18 21:30 Lisinopril (Prinivil) 20 mg DAILY ORAL 01/08/18 09:00 02/07/18 08:59 Metronidazole 100 ml @ 100 mls/hr Q8HR IVPB 01/08/18 14:00 01/15/18 13:59 01/09/18 05:29 Morphine Sulfate (Morphine Sulfate) 2 mg EVERY 4 HOURS PRN IVP severe Pain (Pain Scale 7-10) 01/07/18 22:30 01/14/18 22:29 01/08/18 21:17 Nitroglycerin (Ntg) 0.4 mg Q5M X 3 DOSES PRN SL Prn Chest Pain 01/07/18 22:30 02/06/18 22:29 Ondansetron HCl (Zofran) 4 mg Q6H PRN IVP Nausea & Vomiting 01/07/18 22:30 02/06/18 22:29 01/08/18 21:17 Pantoprazole (Protonix) 40 mg DAILY IVP 01/08/18 09:00 02/07/18 08:59 01/09/18 08:59 Polyethylene Glycol (Miralax) 17 gm HSPRN PRN ORAL Constipation 01/07/18 22:30 02/06/18 22:29 Temazepam (Restoril) 15 mg HSPRN PRN ORAL Insomnia 01/07/18 22:30 01/14/18 22:29 Jeffry Adan MD Jan 09, 2018 13:42
[2018-01-09] MEDS ORDERED: BusPIRone 10mg Tab ORAL SCH (15:00)
[2018-01-09 16:00] VITALS: BP 106/68
--- NOTE | 2018-01-09 16:35 | Internal Med Progress Note ---
Subjective Date of Service: Jan 09, 2018 Physician Name Fei Crocker Attending Physician Hayden Gould MD Current Medications Medications (Trade) Dose Ordered Sig/Dexter Route PRN Reason Start Time Stop Time Status Last Admin Dose Admin Acetaminophen (Tylenol) 650 mg Q4H PRN ORAL fever 01/07/18 22:30 02/06/18 22:29 Al Hydroxide/Mg Hydroxide (Mylanta II) 30 ml Q6H PRN ORAL dyspepsia 01/07/18 22:30 02/06/18 22:29 Buspirone HCl (Buspar) 10 mg BID ORAL 01/09/18 15:00 02/08/18 14:59 01/09/18 15:19 Ciprofloxacin 200 ml @ 200 mls/hr Q12HR IV 01/08/18 13:00 01/15/18 12:59 01/09/18 08:59 Citalopram Hydrobromide (celeXA) 40 mg DAILY ORAL 01/09/18 14:00 02/08/18 13:59 01/09/18 15:20 Dextrose (Dextrose 50%) STAT PRN IV Hypoglycemia 01/07/18 22:30 02/06/18 22:29 Dextrose/Sodium Chloride 1,000 ml @ 75 mls/hr [id number] IV 01/07/18 22:19 02/06/18 22:18 01/09/18 03:15 Diphenhydramine HCl (Benadryl) 25 mg Q6H PRN ORAL Itching/Pruritis 01/07/18 22:30 02/06/18 22:29 Heparin Sodium (Porcine) (Heparin 5000 units/ml) 5,000 units EVERY 12 HOURS SUBQ 01/08/18 09:00 02/07/18 08:59 01/09/18 09:13 Iopamidol (Isovue-300 100ml) 100 ml NOW PRN INJ Radiology Procedure 01/07/18 21:30 Lisinopril (Prinivil) 20 mg DAILY ORAL 01/08/18 09:00 02/07/18 08:59 Metronidazole 100 ml @ 100 mls/hr Q8HR IVPB 01/08/18 14:00 01/15/18 13:59 01/09/18 15:19 Morphine Sulfate (Morphine Sulfate) 2 mg EVERY 4 HOURS PRN IVP severe Pain (Pain Scale 7-10) 01/07/18 22:30 01/14/18 22:29 01/08/18 21:17 Nitroglycerin (Ntg) 0.4 mg Q5M X 3 DOSES PRN SL Prn Chest Pain 01/07/18 22:30 02/06/18 22:29 Ondansetron HCl (Zofran) 4 mg Q6H PRN IVP Nausea & Vomiting 01/07/18 22:30 02/06/18 22:29 01/08/18 21:17 Pantoprazole (Protonix) 40 mg DAILY IVP 01/08/18 09:00 02/07/18 08:59 01/09/18 08:59 Polyethylene Glycol (Miralax) 17 gm HSPRN PRN ORAL Constipation 01/07/18 22:30 02/06/18 22:29 Temazepam (Restoril) 15 mg HSPRN PRN ORAL Insomnia 01/07/18 22:30 01/14/18 22:29 Allergies: Coded Allergies: AMOXICILLIN (Verified Allergy, Severe, tongue swelling & rash, 07/13/12) ROS Limited/Unobtainable: No Constitutional: Reports: no symptoms HEENT: Reports: no symptoms Cardiovascular: Reports: no symptoms Respiratory: Reports: no symptoms Gastrointestinal/Abdominal: Reports: abdominal pain Genitourinary: Reports: no symptoms Neurologic/Psychiatric: Reports: no symptoms Subjective 52 YO F admitted with abdominal pain. Now diverticulitis. Cover for [facility]- Dr Gould. Await transfer to [facility] Objective Last Vital Signs Date Time Temp Pulse Resp B/P (MAP) Pulse Ox O2 Delivery O2 Flow Rate FiO2 01/09/18 12:00 97.2 52 15 114/61 (78) 94 97.2 01/09/18 09:00 Room Air Laboratory Tests Test 01/09/18 05:30 White Blood Count 9.4 K/UL (4.8-10.8) Red Blood Count 4.52 M/UL (4.20-5.40) Hemoglobin 13.9 G/DL (12.0-16.0) Hematocrit 41.6 % (37.0-47.0) Mean Corpuscular Volume 92 FL (80-99) Mean Corpuscular Hemoglobin 30.8 PG (27.0-31.0) Mean Corpuscular Hemoglobin Concent 33.4 G/DL (32.0-36.0) Red Cell Distribution Width 11.8 % (11.6-14.8) Platelet Count 260 K/UL (150-450) Mean Platelet Volume 7.6 FL (6.5-10.1) Neutrophils (%) (Auto) 50.0 % (45.0-75.0) Lymphocytes (%) (Auto) 40.0 % (20.0-45.0) Monocytes (%) (Auto) 7.2 % (1.0-10.0) Eosinophils (%) (Auto) 1.8 % (0.0-3.0) Basophils (%) (Auto) 1.1 % (0.0-2.0) Sodium Level 142 MMOL/L (136-145) Potassium Level 4.0 MMOL/L (3.5-5.1) Chloride Level 107 MMOL/L (98-107) Carbon Dioxide Level 29 MMOL/L (21-32) Anion Gap 6 mmol/L (5-15) Blood Urea Nitrogen 15 mg/dL (7-18) Creatinine 1.3 MG/DL (0.55-1.30) Estimat Glomerular Filtration Rate 43.2 mL/min (>60) Glucose Level 121 MG/DL (74-106) H Calcium Level 9.2 MG/DL (8.5-10.1) Microbiology Date/Time Source Procedure Growth Status 01/07/18 22:00 Urine,Clean Catch Urine Culture - Preliminary NO GROWTH Resulted Intake and Output 01/08/18 01/09/18 19:00 07:00 Intake Total 900 ml 1285 ml Balance 900 ml 1285 ml Intake Oral 360 ml IV Total 900 ml 925 ml # Voids 3 4 Objective PHYSICAL EXAMINATION: GENERAL: The patient is well-developed and well-nourished female, in no apparent distress. VITAL SIGNS: Temperature 97.8 degrees, respirations 18, pulse 71, blood pressure 130/89. HEENT: Eyes, pupils equal and responsive to light and accommodation. Extraocular movements are intact. NECK: Supple without lymphadenopathy. CHEST: Lungs are clear to auscultation bilaterally without wheezes or rales. CARDIOVASCULAR: Regular rhythm and rate. S1 and S2 are normal without murmurs, rubs, or gallops. ABDOMEN: Tender to palpation in all four quadrants. No rebound noted. No hepatosplenomegaly noted. Voluntary guarding noted in all four quadrants. NEUROLOGIC: Cranial nerves II through XII grossly intact without focal deficits. Motor strength is 5/5 bilaterally. Deep tendon reflexes are 2+ plantar Assessment/Plan Problem List: (1) Diabetes mellitus, type II (2) HTN (hypertension) Assessment & Plan: continue lisinopril (3) Diverticulitis Assessment & Plan: Continue ciprofloxacin and flagyl. See GI note (4) Leukocytosis (5) Abdominal pain Assessment & Plan: Continue morphine IV (6) Depression (7) Anemia Status: not improved Assessment/Plan Await transfer to [facility]-contracted facility Fei Crocker MD Jan 09, 2018 16:35
[2018-01-09] MEDS ORDERED: D5 1/2NS 1000ml IV ONE (17:13)
[2018-01-09] MEDS ORDERED: Tubing IV Secondary IV ONE (17:13)
--- NOTE | 2018-01-09 18:58 | Cardiology Report ---
APPROVED REPORT EKG Measurement Heart [id number] Normal sinus rhythm Possible Left atrial enlargement Incomplete right bundle branch block T wave abnormality, consider lateral ischemia Prolonged QT Abnormal ECG
[2018-01-10] MEDS ORDERED: Citalopram Hydrobromide 10mg Tab ORAL SCH (09:00)
--- NOTE | 2018-01-10 11:56 | Discharge Summary ---
Discharge Summary Discharge Summary _ DATE OF ADMISSION: 01/07/2018 DATE OF DISCHARGE: 01/09/2018 CONSULTANTS: Dr. Jeffry Ferrer BRIEF HOSPITAL COURSE: Patient is a 52-year-old female, who presented with chief complaint of generalized abdominal pain. History of present illness started 1 day prior to admission. The patient stated she began to experience generalized abdominal pain. There was no localization of the pain. She has history of diverticulitis in 2016. She has medical history significant for hypertension, anxiety disorder, depression and GERD. She presented to ED and on evaluation, blood work showed leukocytosis with WBC of 20. Creatinine was 1.5, BUN 16. CT scan of the abdomen was consistent with sigmoid diverticulitis without perforation. She was then admitted for evaluation of abdominal pain secondary to diverticulitis. She was initially placed on nothing by mouth. She was given bowel rest, advanced as tolerated. She was placed on IV fluids. ID was consulted. She was started empirically on metronidazole and ciprofloxacin. She was given symptomatic treatment and was placed on Zofran prn. She has history of diabetes mellitus, blood glucose was monitored. Patient had anxiety with low energy and depressed mood. Patient had not been taking her Celexa and was withdrawing. There was no psychotic symptoms noted. She was resumed on Celexa 20 mg every morning, Ativan prn. Leukocytosis resolved. Diet was advanced she was tolerating diet well. She was cleared for discharge home. FINAL DIAGNOSES: Acute sigmoid diverticulitis without perforation Hypertension Major depressive disorder Anxiety disorder Anemia Diabetes mellitus type 2 Acute kidney injury Acid reflux disease DISPOSITION: Patient was discharged home. DISCHARGE MEDICATIONS: Refer to Discharge Medication List. DISCHARGE INSTRUCTIONS: Follow up with PCP in a week. I have been assigned to dictate discharge summary on this account, and I was not involved in the patient's management. Ivone Hartley NP Jan 10, 2018 11:56
== END 2018-01-09 19:40 | disposition home or self-care (01) | DRG 392 ==
LOC: EMR 21:07 → EDBEDREQ 21:31 → 4E 22:36
DX: K57.32 Diverticulitis of large intestine without perforation or abscess without bleeding (principal); N17.9 Acute kidney failure, unspecified; I10 Essential (primary) hypertension; F32.9 Major depressive disorder, single episode, unspecified; F41.9 Anxiety disorder, unspecified; D64.9 Anemia, unspecified; E11.9 Type 2 diabetes mellitus without complications; K21.9 Gastro-esophageal reflux disease without esophagitis; Z88.1 Allergy status to other antibiotic agents; K58.9 Irritable bowel syndrome, unspecified; Z86.010 Personal history of colon polyps; E78.1 Pure hyperglyceridemia; R10.13 Epigastric pain
CPT/HCPCS: 36415; 74177; 80048; 80053; 81003; 82150; 83690; 85007; 85025; 85610; 85730; 87086; 93005; 96365; 96375; 99285; J2405

== ENCOUNTER 2018-09-20 19:55 | Emergency (ER) | payer OTHER ==
[~2018-09-20] VITALS: Ht 157.5 cm; Wt 86.2 kg
[~2018-09-20 19:55] MED LIST changes: +BUSPIRONE HCL15 MG ORAL; +CELEXA20 MG ORAL; +HYDROXYZINE HCL10 M1 PO; +LISINOPRIL20 MG ORAL; +METFORMIN HCL500 M1 ORAL; +PANTOPRAZOLE SO40 MG ORAL
[2018-09-20 20:06] VITALS: BP 143/86
--- NOTE | 2018-09-20 20:06 | NUR ---
ED Nurse Note: Pt arrived ED from home, c/o left the 2nd finger injuried at home. Pt is A/O X 4. VSS.
[2018-09-20] MEDS ORDERED: HYDROcodone/Acetamin 5/325 tab PO ONE (20:15)
[2018-09-20] MEDS ORDERED: Lidocaine 1% MPF 10mg/ml 5ml INJ ONE (20:15)
[2018-09-20] MEDS ORDERED: Neosporin Oint Ud Pkt TOP ONE (20:15)
[2018-09-20] MEDS ORDERED: Tetanus-Diphtheria Toxoid IM ONE (20:15)
--- NOTE | 2018-09-20 20:20 | Emergency Room Report ---
History of Present Illness General Chief Complaint: Laceration Source: Patient Present Illness HPI Patient was hammering a nail. During the process she the nail tore into her left middle finger. Bleeding was controlled with pressure. She denies any numbness. She is able to move the finger without any difficulty. The pain is fairly sharp and rated 6/10. The patient is right-handed. Her tetanus is greater than 10 years. The patient is diabetic. She says her blood sugars of been controlled. Allergies: Coded Allergies: AMOXICILLIN (Verified Allergy, Severe, tongue swelling & rash, 07/13/12) Patient History Past Medical History: see triage record Now: No Reviewed Nursing Documentation: PMH: Agreed; PSxH: Agreed Nursing Documentation-PMH Hx Cardiac Problems: No Hx Hypertension: Yes Hx Diabetes: Yes Hx Cancer: No Hx Gastrointestinal Problems: Yes - DIVERTICULITIS Hx Neurological Problems: No Physical Exam Vital Signs Date Time Temp Pulse Resp B/P (MAP) Pulse Ox O2 Delivery O2 Flow Rate FiO2 09/20/18 19:58 98.2 68 18 143/86 (105) 94 Room Air Skin: laceration - Left middle finger middle phalanx linear 1.5 cm Procedures Laceration/Wound Repair Laceration/Wound Repair : Consent: Verbal Wound Location: upper extremity - Left middle finger Wound's Depth, Shape: linear, contused tissue Wound Length (cm): 2 - 1.5 Wound Explored: clean Betadine Prep?: Yes Anesthesia: 1% Lidocaine Wound Debrided: none Wound Repaired With: sutures Suture Size/Type: 5:0, nylon Sterile Dressing Applied?: Yes Splint Applied?: No Patient Tolerated: Well Complications: None Medical Decision Making Diagnostic Impression: Primary Impression: Laceration of left middle finger Additional Impression: Crush injury ER Course Patient with history of diabetes with finger laceration. The laceration will need repair. X-rays taken to exclude a open fracture or foreign body. The patient will be given [place], tetanus. An Accu-Chek will be obtained. Hand x-ray no fb or fx. Sutured. Due to contused tissue, antibiotics begun. Other X-Ray Diagnostic Results Other X-Ray Diagnostic Results : X-Ray ordered: Left-hand # of Views/Limited Vs Complete: 3 View Indication: Pain EP Interpretation: Yes Electronically Signed by: Electronically signed by Keon Mcgraw MD Status: improved Disposition: HOME, SELF-CARE Condition: Improved Keon Mcgraw MD Sep 20, 2018 20:20
[2018-09-20] MEDS ORDERED: Tetanus/Diptheria/Pertussis IM ONE (20:30)
--- NOTE | 2018-09-20 20:33 | NUR ---
ED Nurse Note: Meds given as ordered.
--- NOTE | 2018-09-20 20:46 | Diagnostic Imaging Report ---
EXAM: XR Left Hand Complete, 3 or More Views CLINICAL HISTORY: TRAUMA TECHNIQUE: Frontal, lateral and oblique views of the left hand. COMPARISON: No relevant prior studies available. FINDINGS: Bones/joints: Unremarkable. Irregularity of the radial styloid process is appears to be a chronic finding. No evidence for fracture of the wrist or hand identified. The carpal rows are intact. Soft tissues: Unremarkable. No radiopaque foreign body. IMPRESSION: No evidence for fracture or subluxation left hand
[2018-09-20] MEDS ORDERED: Cephalexin 500mg cap ORAL ONE (21:15)
[2018-09-20] MEDS ORDERED: CEPHALEXIN500 MG ORAL (21:21)
[2018-09-20] MEDS ORDERED: BACITRACIN15 GM TOPIC (21:21)
[2018-09-20 21:40] VITALS: BP 142/83
--- NOTE | 2018-09-20 21:40 | NUR ---
ER DISCHARGE NOTE: Patient is cleared to be discharged per Dr. Mcgraw. suture done. Meds given as ordered. Pt is aox4 on room air with stable vital signs. Pt was given dc and prescription instructions, pt was able to verbalize understanding. Pt's id band removed. Pt is able to ambulate with steady gait and took all belongings.
== END 2018-09-20 21:40 | disposition home or self-care (01) ==
LOC: EMR 21:15
DX: S61.213A Laceration without foreign body of left middle finger without damage to nail, initial encounter (principal); Z88.1 Allergy status to other antibiotic agents; E11.9 Type 2 diabetes mellitus without complications; I10 Essential (primary) hypertension; K57.90 Diverticulosis of intestine, part unspecified, without perforation or abscess without bleeding; Z23 Encounter for immunization; W23.0XXA Caught, crushed, jammed, or pinched between moving objects, initial encounter; Y92.9 Unspecified place or not applicable
CPT/HCPCS: 82962; 90471; 90714; 90715; 99283

== ENCOUNTER 2019-04-10 18:10 | Emergency (ER) | payer OTHER ==
[~2019-04-10] VITALS: Ht 157.5 cm; Wt 86.2 kg
[~2019-04-10 18:10] MED LIST changes: +BACITRACIN15 GM TOPIC; +CEPHALEXIN500 MG ORAL
[2019-04-10 18:29] VITALS: BP 146/79
[2019-04-10] MEDS ORDERED: Acetaminophen 500mg (ES) tab ORAL ONE (18:45)
[2019-04-10] MEDS ORDERED: Methocarbamol 750mg tab ORAL ONE (18:45)
[2019-04-10 19:00] VITALS: BP 146/79
[2019-04-10] MEDS ORDERED: LIDODERM700 M1 TOPIC (19:00)
[2019-04-10] MEDS ORDERED: ROBAXIN-750750 MG PO (19:00)
[2019-04-10] MEDS ORDERED: TYLENOL EXTRA500 MG ORAL (19:00)
--- NOTE | 2019-04-10 20:15 | Emergency Room Report ---
History of Present Illness General Chief Complaint: Lower Back Pain or Injury Source: Patient Present Illness HPI 53-year-old female presents ED for evaluation. Patient complaining of back pain which started today. States she was on top of a ladder cleaning when she felt a twisting pulling sensation in her back. Pain is dull, 8 out of 10, nonradiating. Worse with twisting and bending. Denies any fall or injury. No other aggravating relieving factors. Denies any other associated symptoms Allergies: Coded Allergies: AMOXICILLIN (Verified Allergy, Severe, tongue swelling & rash, 07/13/12) Patient History Past Medical History: DM, HTN Past Surgical History: none Pertinent Family History: none Social History: Denies: smoking, alcohol use, drug use Now: No Immunizations: UTD Reviewed Nursing Documentation: PMH: Agreed; PSxH: Agreed Nursing Documentation-PMH Past Medical History: No History, Except For Hx Cardiac Problems: No Hx Hypertension: Yes Hx Diabetes: Yes Hx Cancer: No Hx Gastrointestinal Problems: Yes - DIVERTICULITIS Hx Neurological Problems: No Review of Systems All Other Systems: negative except mentioned in HPI Physical Exam Vital Signs Date Time Temp Pulse Resp B/P (MAP) Pulse Ox O2 Delivery O2 Flow Rate FiO2 04/10/19 18:20 98.2 77 17 146/79 (101) 99 Room Air Sp02 EP Interpretation: reviewed, normal General Appearance: no apparent distress, alert, GCS 15, non-toxic Head: normocephalic Eyes: bilateral eye normal inspection, bilateral eye PERRL ENT: normal ENT inspection Neck: full range of motion, supple, no bony tend, supple/symm/no masses Respiratory: chest non-tender, lungs clear, normal breath sounds, speaking full sentences Cardiovascular #1: regular rate, rhythm, no edema Gastrointestinal: normal inspection Rectal: deferred Genitourinary: no CVA tenderness, no vertebral tenderness Musculoskeletal: other - paraspinal thoracic and lumbar tenderness Neurologic: alert, motor strength/tone normal, oriented x3, sensory intact, responsive, speech normal Psychiatric: normal inspection Skin: no rash Lymphatic: normal inspection Medical Decision Making Diagnostic Impression: Primary Impression: Back strain Qualified Codes: S39.012A - Strain of muscle, fascia and tendon of lower back , initial encounter ER Course Hospital Course 53 yo F presents with upper and lower back pain. no fall or trauma Differential diagnoses include: pyelonephritis, kidney stone, muscle strain, Lspine fracture Clinical course Patient placed on stretcher. After initial history, physical exam reveals middle-aged female in no acute distress. There is no midline tenderness. There is paraspinal tenderness in the thoracic and lumbar regions. No bruising. No flank pain. No focal neurological deficits. 5 out of 5 strength in lower extremities. Discussed findings with patient. Pain is muscular. I do not believe imaging required. We will treat with anti-inflammatory, muscle relaxer, Lidoderm patch. Safe for discharge for close outpatient follow-up. I will provide referrals Diagnosis - back pain Stable and discharged to home with prescription for Tylenol, robaxin, lidoderm. Followup with PMD. Return to ED if symptoms recur or worsen Last Vital Signs Date Time Temp Pulse Resp B/P (MAP) Pulse Ox O2 Delivery O2 Flow Rate FiO2 04/10/19 19:00 98.2 17 146/79 99 Room Air 04/10/19 18:29 96 Status: improved Disposition: HOME, SELF-CARE Condition: Stable Scripts Lidocaine Patch* (Lidoderm Patch*) 1 Each Adh..patch 1 PATCH TOPIC DAILY, #7 PATCH 0 Refills Patch(es) may remain in place for up to 12 hours in any 24-hour period. Prov: Denys Park MD 04/10/19 Methocarbamol* (ROBAXIN-750*) 750 Mg Tablet 750 MG PO TID, #21 TAB 0 Refills Prov: Denys Park MD 04/10/19 Acetaminophen* (TYLENOL EXTRA STRENGTH*) 500 Mg Tablet 500 MG ORAL Q8H PRN for Prn Headache/Temp > 101, #30 TAB 0 Refills Prov: Denys Park MD 04/10/19 Referrals: Jim[facility] Diallo. [facility] Patient Instructions: Low Back Sprain With Rehab[facility] Denys Park MD Apr 10, 2019 20:15
== END 2019-04-10 19:00 | disposition home or self-care (01) ==
LOC: EMR 18:39
DX: S39.012A Strain of muscle, fascia and tendon of lower back, initial encounter (principal); I10 Essential (primary) hypertension; E11.9 Type 2 diabetes mellitus without complications; K57.92 Diverticulitis of intestine, part unspecified, without perforation or abscess without bleeding; X50.1XXA Overexertion from prolonged static or awkward postures, initial encounter; Y93.E9 Activity, other interior property and clothing maintenance; Y92.9 Unspecified place or not applicable
CPT/HCPCS: 99282